=== PATIENT | male | born 1975 | race African-American/Black ===

== ENCOUNTER 2017-01-27 15:19 | Observation (INO) | payer SELFPAY ==
[~2017-01-27] VITALS: Ht 172.7 cm; Wt 109.1 kg
[~2017-01-27 15:19] MED LIST: LISI-338
--- NOTE | 2017-01-27 15:51 | EKG ---
[facility] [address] [place] [address] Test Date: 2017-01-27 Test Time: 15:30:04 Pat Name: ANDREZ ANTONIO Department: Room: Gender: M Technical Product Manager: : 1975 Requested By: JANET LINK Order Number: [id number] Reading MD: Roxane Estrella Measurements Intervals Butler Rate: 89 P: 48 RI: 160 QRS: -1 QRSD: 102 T: 155 QT: 368 QTc: 449 Interpretive Statements SINUS RHYTHM LEFT ATRIAL ABNORMALITY LEFTWARD AXIS INCOMPLETE RIGHT BUNDLE BRANCH BLOCK LVH WITH REPOLARIZATION ABNORMALITY ALSO CONSIDER MYOCARDIAL ISCHEMIA Electronically Signed On 01-30-2017 15:27:12 CDT by Roxane Estrella
[2017-01-27 15:53] LABS: BASO # 0.1 x10^3/uL (0.0-0.2); BASO % 1 % (0-3); EOS % 1 % (0-3); HEMATOCRIT 47.5 % (39.0-53.0); HEMOGLOBIN 16.5 g/dL (13.0-17.5); LYMPH # 2.4 x10^3/uL (1.0-4.8); LYMPH % 28 % (24-48); MEAN CORPUSCULAR HEMOGLOBIN 29 pg (25-35); MEAN CORPUSCULAR HGB CONC 35 g/dL (31-37); MEAN CORPUSCULAR VOLUME 85 fL (79-100); MONO % 7 % (0-9); NEUT % 64 % (31-73); PLATELET COUNT 257 x10^3/uL (140-400); RED BLOOD COUNT 5.61 x10^6/uL (4.30-5.70); RED CELL DISTRIBUTION WIDTH 14.1 % (11.5-14.5); WHITE BLOOD COUNT 8.5 x10^3/uL (4.0-11.0)
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
--- NOTE | 2017-01-27 15:58 | RAD ---
Portable chest, 01/27/2017: History: Shortness of breath and chest pain Comparison is made to a study from 12/13/2013. The heart size and pulmonary vascularity are normal. There are granulomatous calcifications at the AP window level. No acute infiltrates are seen. There is no evidence of pleural fluid. IMPRESSION: No acute cardiopulmonary abnormality is detected.
[2017-01-27] MEDS ORDERED: cloNIDine HCL 0.1 MG TABLET PO ONE (16:00)
[2017-01-27 16:05] LABS: CALCIUM 9.3 mg/dL (8.5-10.1); CREATININE 1.2 mg/dL (0.7-1.3); GFR 81.6; POTASSIUM 4.2 mmol/L (3.5-5.1)
[2017-01-27 16:11] LABS: ALBUMIN 3.4 g/dL (3.4-5.0); ALBUMIN/GLOBULIN RATIO 0.9 (1.0-1.7); TOTAL BILIRUBIN 0.7 mg/dL (0.2-1.0); TOTAL PROTEIN 7.4 g/dL (6.4-8.2)
[2017-01-27] MEDS ORDERED: LISINOPRIL 10 MG TABLET PO ONE (17:15)
[2017-01-27] MEDS ORDERED: ASPIRIN CHEWABLE 81 MG TABLET. PO ONE (18:00)
[2017-01-27 19:00] VITALS: BP 116/62
[2017-01-27] MEDS ORDERED: ACETAMINOPHEN 325 MG TABLET. PO PRN (20:00)
[2017-01-27] MEDS ORDERED: HYDROcodone/APAP 5/325MG 1 TAB TABLET PO PRN (20:00)
[2017-01-27] MEDS ORDERED: ALBUTEROL SULFATE 2.5 MG/3 ML NEBU. NEB PRN (20:00)
[2017-01-27] MEDS ORDERED: ONDANSETRON PF 4 MG/2 ML VIAL. IV PRN (20:00)
--- NOTE | 2017-01-27 20:03 | PDOC1 ---
History and Physical Identification/Chief Complaint Chief Complaint Date of exam is 01/27/2017 Chief complaint is chest pain History of present illness: A 41-year-old -[place] male patient with a prior history of hypertension and type 2 diabetes mellitus present to the ER with complaints of chest pain for nearly 2 days, described it as a constant achy located in the center of the chest, patient ran out of his medications for a few days, not able to take his blood pressure medication due to financial problems. He does admit that he took cocaine 5 days ago with marijuana. He denies any aggravating or relieving factors patient says because of his blood pressure is not able to work his blood pressure medications are causing him dizziness. He denies any syncope or leg swellings. Denies any radiation of the pain denies any nausea vomiting or sweating. Past medical history hypertension type 2 diabetes mellitus Past surgical history: Tracheostomy Personal history: Heavy alcohol, cocaine and THC occasional. No smoking Family history: No sudden cardiac deaths? Questionable hypertension Allergies NKDA Problems: Current Problem List Problem List Problems Medical Problems: (1) Accelerated hypertension Status: Acute (2) Chest pain Status: Acute Current Medications Current Medications Current Medications Medications (Trade) Dose Ordered Sig/Derian Start Time Stop Time Status Last Admin Dose Admin Aspirin (Children'S Aspirin) 324 mg 1X ONCE 01/27/17 18:00 01/27/17 18:01 DC 01/27/17 18:50 324 MG Clonidine HCl (Catapres) 0.3 mg 1X ONCE 01/27/17 16:00 01/27/17 16:01 DC 01/27/17 16:20 0.3 MG Lisinopril (Prinivil) 20 mg 1X ONCE 01/27/17 17:15 01/27/17 17:16 DC 01/27/17 17:25 20 MG Allergies Allergies Allergies Coded Allergies Type Severity Reaction Last Updated Verified No Known Drug Allergies 12/13/13 No ROS Review of System CONSTITUTIONAL: No fever or chills EYES: No recent changes SKIN: No rash or itching CARDIOVASCULAR: No chest pain, syncope, palpitations, or edema RESPIRATORY: No SOB or cough GASTROINTESTINAL: No nausea, vomiting or abdominal pain NEUROLOGICAL: No headaches or weakness ENDOCRINE: No cold or heat intolerance GENITOURINARY: No urgency or frequency of urination MUSCULOSKELETAL: No back pain or joint pain LYMPHATICS: No enlarged lymph nodes PSYCHIATRIC: No anxiety or depression Physical Exam Physical Exam GEN.: No apparent distress. Alert and oriented. HEENT: Head is normocephalic, atraumatic NECK: Supple. LUNGS: Clear to auscultation. HEART: RRR, S1, S2 present. Peripheral pulses intact ABDOMEN: Soft, nontender. Positive bowel sounds. EXTREMITIES: Without any cyanosis. NEUROLOGIC: Normal speech, normal tone PSYCHIATRIC: Normal affect, normal mood. SKIN: No ulcerations Vitals Vitals Vital Signs Date Time Temp Pulse Resp B/P (MAP) Pulse Ox O2 Delivery O2 Flow Rate FiO2 01/27/17 18:30 74 16 125/68 (87) 100 01/27/17 15:30 98.6 Room Air 98.6 Labs Labs Laboratory Tests Test 01/27/17 15:26 01/27/17 15:45 Glucose (Fingerstick) 196 mg/dL (70-99) White Blood Count 8.5 x10^3/uL (4.0-11.0) Red Blood Count 5.61 x10^6/uL (4.30-5.70) Hemoglobin 16.5 g/dL (13.0-17.5) Hematocrit 47.5 % (39.0-53.0) Mean Corpuscular Volume 85 fL (79-100) Mean Corpuscular Hemoglobin 29 pg (25-35) Mean Corpuscular Hemoglobin Concent 35 g/dL (31-37) Red Cell Distribution Width 14.1 % (11.5-14.5) Platelet Count 257 x10^3/uL (140-400) Neutrophils (%) (Auto) 64 % (31-73) Lymphocytes (%) (Auto) 28 % (24-48) Monocytes (%) (Auto) 7 % (0-9) Eosinophils (%) (Auto) 1 % (0-3) Basophils (%) (Auto) 1 % (0-3) Neutrophils # (Auto) 5.4 x10^3uL (1.8-7.7) Lymphocytes # (Auto) 2.4 x10^3/uL (1.0-4.8) Monocytes # (Auto) 0.6 x10^3/uL (0.0-1.1) Eosinophils # (Auto) 0.1 x10^3/uL (0.0-0.7) Basophils # (Auto) 0.1 x10^3/uL (0.0-0.2) Sodium Level 137 mmol/L (136-145) Potassium Level 4.2 mmol/L (3.5-5.1) Chloride Level 102 mmol/L (98-107) Carbon Dioxide Level 27 mmol/L (21-32) Anion Gap 8 (6-14) Blood Urea Nitrogen 16 mg/dL (8-26) Creatinine 1.2 mg/dL (0.7-1.3) Estimated GFR (Cockcroft-Gault) 81.6 BUN/Creatinine Ratio 13 (6-20) Glucose Level 195 mg/dL (70-99) Calcium Level 9.3 mg/dL (8.5-10.1) Total Bilirubin 0.7 mg/dL (0.2-1.0) Aspartate Amino Transf (AST/SGOT) 21 U/L (15-37) Alanine Aminotransferase (ALT/SGPT) 36 U/L (16-63) Alkaline Phosphatase 84 U/L (46-116) Troponin I Quantitative 0.032 ng/mL (0.000-0.055) Total Protein 7.4 g/dL (6.4-8.2) Albumin 3.4 g/dL (3.4-5.0) Albumin/Globulin Ratio 0.9 (1.0-1.7) Ethyl Alcohol Level < 10 mg/dL (0-10) Laboratory Tests Test 01/27/17 15:26 01/27/17 15:45 Glucose (Fingerstick) 196 mg/dL (70-99) White Blood Count 8.5 x10^3/uL (4.0-11.0) Red Blood Count 5.61 x10^6/uL (4.30-5.70) Hemoglobin 16.5 g/dL (13.0-17.5) Hematocrit 47.5 % (39.0-53.0) Mean Corpuscular Volume 85 fL (79-100) Mean Corpuscular Hemoglobin 29 pg (25-35) Mean Corpuscular Hemoglobin Concent 35 g/dL (31-37) Red Cell Distribution Width 14.1 % (11.5-14.5) Platelet Count 257 x10^3/uL (140-400) Neutrophils (%) (Auto) 64 % (31-73) Lymphocytes (%) (Auto) 28 % (24-48) Monocytes (%) (Auto) 7 % (0-9) Eosinophils (%) (Auto) 1 % (0-3) Basophils (%) (Auto) 1 % (0-3) Neutrophils # (Auto) 5.4 x10^3uL (1.8-7.7) Lymphocytes # (Auto) 2.4 x10^3/uL (1.0-4.8) Monocytes # (Auto) 0.6 x10^3/uL (0.0-1.1) Eosinophils # (Auto) 0.1 x10^3/uL (0.0-0.7) Basophils # (Auto) 0.1 x10^3/uL (0.0-0.2) Sodium Level 137 mmol/L (136-145) Potassium Level 4.2 mmol/L (3.5-5.1) Chloride Level 102 mmol/L (98-107) Carbon Dioxide Level 27 mmol/L (21-32) Anion Gap 8 (6-14) Blood Urea Nitrogen 16 mg/dL (8-26) Creatinine 1.2 mg/dL (0.7-1.3) Estimated GFR (Cockcroft-Gault) 81.6 BUN/Creatinine Ratio 13 (6-20) Glucose Level 195 mg/dL (70-99) Calcium Level 9.3 mg/dL (8.5-10.1) Total Bilirubin 0.7 mg/dL (0.2-1.0) Aspartate Amino Transf (AST/SGOT) 21 U/L (15-37) Alanine Aminotransferase (ALT/SGPT) 36 U/L (16-63) Alkaline Phosphatase 84 U/L (46-116) Troponin I Quantitative 0.032 ng/mL (0.000-0.055) Total Protein 7.4 g/dL (6.4-8.2) Albumin 3.4 g/dL (3.4-5.0) Albumin/Globulin Ratio 0.9 (1.0-1.7) Ethyl Alcohol Level < 10 mg/dL (0-10) VTE Prophylaxis Ordered VTE Prophylaxis Devices: Yes VTE Pharmacological Prophylaxi: No Assessment/Plan Assessment/Plan Chest pain unclear etiology Uncontrolled hypertension Type 2 diabetes mellitus Heavy alcohol use Cocaine and THC Plan For chest pain I will get 2 more sets of troponins, EKG personally reviewed showed LVH changes with the strain pattern, consult cardiology for further recommendations, echocardiogram ordered I will start his own medications along with the IV hydralazine for blood pressure control His been started and I'll call withdrawal prevention with multivitamin replacements and up as needed Ativan package worker consultation Sliding scale insulin for hyperglycemia Pain control with hydrocodone/Ativan Keep patient nothing by mouth from midnight KHANG VALENTE MD Jan 27, 2017 20:03
[2017-01-27] MEDS ORDERED: LISI-334 PO (21:21)
[2017-01-27] MEDS ORDERED: METF-620 PO (21:23)
[2017-01-27] MEDS: MULTIVIT INFUSN,ADULT 4,VIT K 10 ML, THIAMINE 100 MG, FOLIC ACID 1 MG in IV NORMAL SALI... IV SCH (21:25)
[2017-01-27] MEDS: LORazepam 1 MG TABLET PO SCH (21:25)
[2017-01-27 23:00] VITALS: BP 113/55
[2017-01-28] VITALS (7 sets, daily range): BP systolic 132–167; BP diastolic 90–113
--- NOTE | 2017-01-28 00:33 | ACF ---
Admission Forms Criteria CARDIOLOGY GRG Clinical Indications for Admission to Inpatient Care ( Place 'X' for any and all applicable criteria): Hospital admission is needed for appropriate care of the patient because of ANY ONE of the following (1): [ ] I. Hemodynamic instability as indicated by ALL of the following (1)(2)(3) (4)(5) [ ]a) Vital signs or other findings not as expected for chronic patient condition or baseline [ ]b) Instability indicated by ANY ONE of the following: [ ]i) Hypotension [ ]ii) Symptomatic Tachycardia unresponsive to treatment ( e.g., analgesia, fluids, sedation as indicated) [ ]iii) Inadequate perfusion indicated by ANY ONE of the following: [ ] 1) Lactic acidosis (> 2 mmol/L) [ ] 2) New abnormal capillary refill (> 3 seconds) [ ] 3) Reduced urine output [ ] 4) New altered mental status [ ]iv) Orthostatic vital sign changes unresponsive to treatment (e.g., fluids) [ ]v) IV inotropic or vasopressor medication required to maintain adequate blood pressure or perfusion [ ] II. Severe heart failure as indicated by ANY ONE of the following(17)(18) [ ]a) Respiratory distress [ ]b) Hypotension [ ]c) Anasarca (refractory to outpatient therapy) [ ]d) Cardiac arrhythmias of immediate concern [ ]e) Myocardial ischemia [ ] III. Cardiac arrhythmias or findings of immediate concern indicated by ANY ONE of the following (19)(20): [ ] a) Heart rhythms that are inherently dangerous or unstable indicated by ANY ONE of the following (21)(22)(23): [ ] i) Resuscitated ventricular fibrillation or cardiac arrest [ ] ii) Ventricular escape rhythm [ ] iii) Sustained ventricular tachycardia (30 seconds or more of ventricular rhythm at greater than 100 beats per minute) [ ] iv) Nonsustained ventricular tachycardia and ANY ONE of the following: [ ] 1) Suspected cardiac ischemia as cause or consequence of ventricular tachycardia [ ] 2) In setting of acute myocarditis [ ] b) Unstable cardiac conduction defects indicated by ANY ONE of the following(23)(24)(25) [ ] i) Type II second-degree atrioventricular block [ ]ii) Third-degree atrioventricular block [ ]iii) New-onset left bundle branch block with suspected myocardial ischemia [ ]c) Any heart rhythm and ANY ONE of the following (21)(22)(26)(27) (28) [ ] i) Continuous long-term ECG monitoring needed (e.g., initiation of drug requiring monitoring for more than 24 hours) [ ] ii) Patient has automatic implanted cardioverter defibrillator that is repeatedly firing, malfunctioning, or in need of immediate adjustment of settings beyond the scope of ambulatory or observation care [ ]d) Heart rhythms of concern due to ANY ONE of the following: [ ] i) Hypotension [ ] ii) Respiratory distress [ ] iii) Association with other significant symptoms (e.g., bradycardia with syncope or ongoing dizziness, supraventricular tachycardia with chest pain (14)(15)(17) [ ] IV. Monitoring for cardiac contusion beyond the scope of observation care needed [A](30)(31)(32) [ ] V. Surgical or device complication (e.g., valve replacement complication , pacemaker dysfunction) (35)(41)(44)(45)(46) [ ] . Inpatient palliative care needed. [B](49) Also use Inpatient Palliative Care Criteria [ ] VII. Nonbacterial thrombotic (marantic) endocarditis (36)(43)(47)(48) [X] VIII. Cardiology condition, symptom, or finding for which emergency and observation care has failed or are not considered appropriate. [ ] IX. Acute valvular disease requiring inpatient as indicated by ANY ONE of the following (41) [ ]a) Acute valvular regurgitation (42) [ ]b) Noninfectious valvulitis (43) [ ]c) Obstructive valve thrombosis [ ]d) Paravalvular leak [ ]e) Other significant valvular disorder remaining after emergency or observation level of care (as appropriate) [ ]X. Pericardial disease requiring inpatient treatment as indicated by ANY ONE of the following (33)(34)(35)(36)(37) [ ]a) Suspected tamponade (38)(39)(40) [ ]b) Hemopericardium [ ]c) Other significant pericardial disorder remaining after emergency or observation level of care (as appropriate) [ ] XI. Cardiac ischemia beyond scope of emergency and observation care. [ ] XII. Hypertension requiring inpatient treatment as indicated by ANY ONE of the following (6)(7)(8) [ ]a) SBP greater than 220 mm Hg or DBP greater than 120 mmHg despite treatment [ ]b) SBP greater than 140 mm Hg or DBP greater than 100 mm Hg with evidence of acute end organ damage as indicated by ANY ONE of the following [ ] i) Encephalopathy [ ] ii) Acute renal failure as indicated by new onset of ANY ONE of the following (9)(10)(11)(12)(13) [ ]1) 3-fold rise in serum creatinine from baseline [ ]2) Serum creatinine greater than 4 mg/dL ( 354 micromoles/L) with acute rise greater than 0.5 mg/dL (44.2 micromoles/L) [ ]3) Reduction of more than 75% in estimated glomerular filtration rate from baseline [ ]4) Estimated glomerular filtration rate less than 35 mL/min/1.73m2 (0.59 mL/sec/1.73m2) in child up to 18 years of age [ ]5) Cessation of urine output indicated by ALL of the following [ ]A. Adequate volume status [ ]B. Inadequate urine output as indicated by ANY ONE of the following [ ]a. Urine output less than 0.3 mL/kg/hr for 24 hours [ ]b. Anuria (urine output less than 0.1 mL/kg/hr) for 12 hours [ ] iii) Aortic dissection [ ] iv) Myocardial Ischemia [ ] v) Left ventricular heart failure [ ]vi) Retinal Hemorrhage [ ]vii) Other significant finding [ ]c) Hypertension in child requiring inpatient treatment as indicated by ALL of the following(14)(15)(16) [ ] i) Outpatient treatment not effective, not available, or not appropriate [ ]ii) SBP or DBP greater than 95th percentile for age [ ]iii) Evidence of acute end organ damage as indicated by ANY ONE of the following [ ]1) Altered mental status [ ]2) Acute renal failure as indicated by new onset of ANY ONE of the following(9)(10)(11)(12)(13) [ ]A. 3-fold rise in serum creatinine from baseline [ ]B. Serum creatinine greater than 4 mg/dL (354 micromoles/L) with acute rise greater than 0.5 mg/dL (44.2 micromoles/L) [ ]C. Reduction of more than 75% in estimated glomerular filtration rate from baseline [ ]D. Estimated glomerular filtration rate less than 35 mL/min/1.73m2 (0.59 mL/sec/1.73m2) in child up to 18 years of age [ ]E. Cessation of urine output indicated by ALL of the following [ ]a. Adequate volume status [ ]b. Inadequate urine output as indicated by ANY ONE of the following [ ]i) Urine output less than 0.3 mL/kg/hr for 24 hours [ ]ii) Anuria ( urine output less than 0.1 mL/kg/hr) for 12 hours [ ]3) Severe headache [ ]4) Visual disturbance [ ]5) Retinal hemorrhage [ ]6) Other significant finding [ ]XIII. Complications of transplanted heart indicated by ANY ONE of the following(61): [ ]a) Acute graft rejection requiring inpatient management (eg, intravenous immunosuppression)(62)(63) [ ]b) Acute graft heart failure indicated by ANY ONE of the following(64): [ ]i) Hemodynamic instability [ ]ii) Cardiac arrhythmias of immediate concern [ ]iii) Pulmonary edema that is very severe (eg, mechanical ventilation needed, imminent or likely, need for 100% oxygen to keep oxygen saturation above 90%) [ ]iv) Pulmonary edema that is persistent as indicated by ALL of the following: [ ]1) New need for oxygen therapy to keep oxygen saturation above 90% (or increased FiO2 need from baseline) [ ]2) Has not improved sufficiently with emergency department or observation care IV diuretics or other heart failure treatments[E] [ ]v) Altered mental status that is severe or persistent [ ]vi) Increased creatinine (new on laboratory test) with reduction of more than 50% in estimated glomerular filtration rate from baseline [ ]vii) Progressively (ongoing) rising creatinine (known from past laboratory test) with reduction of more than 25% in estimated glomerular filtration rate from baseline [ ]viii) Acute renal failure [ ]ix) Acute peripheral ischemia (eg, examination shows pulseless, cool, mottled, or cyanotic extremity) [ ]x) Pulmonary artery catheter monitoring needed [ ]xi) Other sign or symptom of heart failure requiring inpatient treatment (ie, too severe or not responsive to outpatient and observation care treatment) [ ]c) Infection requiring inpatient management (eg, Hemodynamic instability, need for intravenous antimicrobial treatment)(66)(67)(68)(69)(70) [ ]d) Cardiac allograft vasculopathy requiring inpatient management ( eg evidence of cardiac ischemia)(71) [ ]e) Other complication of transplanted heart (eg, stroke, severe pulmonary hypertension, severe valvular dysfunction) requiring inpatient management(72) The original [facility] content created by [facility] has been revised. The portions of the content which have been revised are identified through the use of italic text or in bold, and [facility] has neither reviewed nor approved the modified material. All other unmodified content is copyright [facility]. Please see references footnoted in the original [facility] edition 2016 Admission Criteria Met?: Yes SONYA BOGGS Jan 28, 2017 00:33
[2017-01-28] MEDS: LORazepam 1 MG TABLET PO SCH ×4 (02:51→21:26)
[2017-01-28 06:42] LABS: CALCIUM 8.9 mg/dL (8.5-10.1); CREATININE 1.2 mg/dL (0.7-1.3); GFR 81.6; POTASSIUM 4.3 mmol/L (3.5-5.1)
[2017-01-28 07:39] LABS: BASO % 0 % (0-3); EOS % 1 % (0-3); HEMATOCRIT 43.6 % (39.0-53.0); LYMPH # 2.8 x10^3/uL (1.0-4.8); LYMPH % 40 % (24-48); MEAN CORPUSCULAR HEMOGLOBIN 29 pg (25-35); MEAN CORPUSCULAR HGB CONC 35 g/dL (31-37); MEAN CORPUSCULAR VOLUME 85 fL (79-100); MONO % 6 % (0-9); NEUT % 52 % (31-73); PLATELET COUNT 229 x10^3/uL (140-400); RED BLOOD COUNT 5.15 x10^6/uL (4.30-5.70); WHITE BLOOD COUNT 6.9 x10^3/uL (4.0-11.0)
[2017-01-28] MEDS ORDERED: DEXTROSE 50% 25 GM / 50ML DISP.SYRIN. IV PRN (08:30)
[2017-01-28] MEDS: LISINOPRIL 20 MG TABLET PO SCH ×2 (09:00→15:57)
--- NOTE | 2017-01-28 09:55 | PDOC2 ---
CARDIAC CONSULT DATE OF CONSULT Date of Consult DATE: 01/28/17 TIME: 09:38 REASON FOR CONSULT Reason for Consult: Chest pain REFERRING PHYSICIAN Referring Physician: Elysia SOURCE Source: Chart review, Patient HISTORY OF PRESENT ILLNESS HISTORY OF PRESENT ILLNESS This is a 41 yo AA male admitted for complains of chest pain. Reports that he last use cocaine 5 days ago. ETOH and marijuana 2 days ago. He also smokes tobacco and he has not been taking his lisinopril routinely, out of statin, but takes metformin daily and this is because he explains he is homeless living with his sister and no money. He has been having mid sharp pain in the last 3 days intermittent with associated mild SOA, diaphoresis, VALENCIA. This does go to his right shoulder at times. No palpitations, nausea or vomiting. He does have daily heartburn but does not use any medications for it. Denies any prior CAD, VTE, falls, or any recent injury. PAST MEDICAL HISTORY Cardiovascular: HTN, Hyperlipidemia Pulmonary: No pertinent hx CENTRAL NERVOUS SYSTEM: Other (No pertinent history) GI: GERD Heme/Onc: No pertinent hx Hepatobiliary: No pertinent hx Psych: Addictions, Other (alcoholism) Musculoskeletal: Other (No pertinent history) Rheumatologic: No pertinent hx Infectious disease: No pertinent hx ENT: No pertinent hx Renal/: No pertinent hx Endocrine: Diabetes (2) Dermatology: No pertinent hx PAST SURGICAL HISTORY Past Surgical History: Other (right clavicle repair, right neck cyst removal) FAMILY HISTORY Family History: Coronary Artery Disease (mother) SOCIAL HISTORY Smoke: <1 pack per day (>25 yrs) ALCOHOL: heavy (6 pack beer almost daily) Drugs: Cocaine (weekly used last 5 days ago), Marijuana (last use 2 days ago) Lives: with Family (with sister) CURRENT MEDICATIONS CURRENT MEDICATIONS Current Medications Medications (Trade) Dose Ordered Sig/Derian Route PRN Reason Start Time Stop Time Status Last Admin Dose Admin Clonidine HCl (Catapres) 0.3 mg 1X ONCE PO 01/27/17 16:00 01/27/17 16:01 DC 01/27/17 16:20 Lisinopril (Prinivil) 20 mg 1X ONCE PO 01/27/17 17:15 01/27/17 17:16 DC 01/27/17 17:25 Aspirin (Children'S Aspirin) 324 mg 1X ONCE PO 01/27/17 18:00 01/27/17 18:01 DC 01/27/17 18:50 Albuterol Sulfate (Ventolin Neb Soln) 2.5 mg PRN Q4HRS PRN NEB SHORTNESS OF BREATH 01/27/17 20:00 01/27/17 21:11 Multivitamins 10 ml/Thiamine HCl 100 mg/Folic Acid 1 mg/Sodium Chloride 1,011.2 ml @ 100 mls/ hr QHS IV 01/27/17 21:00 01/27/17 21:25 Lorazepam (Ativan) 2 mg Q6H PO 01/27/17 20:00 01/29/17 02:01 01/28/17 02:51 ALLERGIES ALLERGIES: Coded Allergies: No Known Drug Allergies (Unverified , 12/13/13) ROS Review of System 14 point ROS evaluated with pertinent positives noted per HPI PHYSICAL EXAM General: Alert, Oriented X3, Cooperative, No acute distress HEENT: Atraumatic, Mucous membr. moist/pink Lungs: Clear to auscultation, Normal air movement Heart: Regular rate (SR), Normal S1, Normal S2, Other (2/6 systolic murmur to LLS border) Abdomen: Soft, No tenderness Extremities: No cyanosis, No edema Skin: No breakdown, No significant lesion Neuro: Normal speech, Sensation intact Psych/Mental Status: Mental status NL, Mood NL MUSCULOSKELETAL: Full range of motion without pain VITALS VITALS Vital Signs Date Time Temp Pulse Resp B/P (MAP) Pulse Ox O2 Delivery O2 Flow Rate FiO2 01/28/17 07:00 96.7 99 18 132/96 (108) 96 Room Air 96.7 LABS Lab: Laboratory Tests Test 01/27/17 15:26 01/27/17 15:45 01/27/17 21:17 01/28/17 06:11 Glucose (Fingerstick) 196 mg/dL (70-99) 182 mg/dL (70-99) White Blood Count 8.5 x10^3/uL (4.0-11.0) 6.9 x10^3/uL (4.0-11.0) Red Blood Count 5.61 x10^6/uL (4.30-5.70) 5.15 x10^6/uL (4.30-5.70) Hemoglobin 16.5 g/dL (13.0-17.5) 15.0 g/dL (13.0-17.5) Hematocrit 47.5 % (39.0-53.0) 43.6 % (39.0-53.0) Mean Corpuscular Volume 85 fL (79-100) 85 fL (79-100) Mean Corpuscular Hemoglobin 29 pg (25-35) 29 pg (25-35) Mean Corpuscular Hemoglobin Concent 35 g/dL (31-37) 35 g/dL (31-37) Red Cell Distribution Width 14.1 % (11.5-14.5) 14.0 % (11.5-14.5) Platelet Count 257 x10^3/uL (140-400) 229 x10^3/uL (140-400) Neutrophils (%) (Auto) 64 % (31-73) 52 % (31-73) Lymphocytes (%) (Auto) 28 % (24-48) 40 % (24-48) Monocytes (%) (Auto) 7 % (0-9) 6 % (0-9) Eosinophils (%) (Auto) 1 % (0-3) 1 % (0-3) Basophils (%) (Auto) 1 % (0-3) 0 % (0-3) Neutrophils # (Auto) 5.4 x10^3uL (1.8-7.7) 3.6 x10^3uL (1.8-7.7) Lymphocytes # (Auto) 2.4 x10^3/uL (1.0-4.8) 2.8 x10^3/uL (1.0-4.8) Monocytes # (Auto) 0.6 x10^3/uL (0.0-1.1) 0.4 x10^3/uL (0.0-1.1) Eosinophils # (Auto) 0.1 x10^3/uL (0.0-0.7) 0.1 x10^3/uL (0.0-0.7) Basophils # (Auto) 0.1 x10^3/uL (0.0-0.2) 0.0 x10^3/uL (0.0-0.2) Sodium Level 137 mmol/L (136-145) 139 mmol/L (136-145) Potassium Level 4.2 mmol/L (3.5-5.1) 4.3 mmol/L (3.5-5.1) Chloride Level 102 mmol/L (98-107) 102 mmol/L (98-107) Carbon Dioxide Level 27 mmol/L (21-32) 30 mmol/L (21-32) Anion Gap 8 (6-14) 7 (6-14) Blood Urea Nitrogen 16 mg/dL (8-26) 15 mg/dL (8-26) Creatinine 1.2 mg/dL (0.7-1.3) 1.2 mg/dL (0.7-1.3) Estimated GFR (Cockcroft-Gault) 81.6 81.6 BUN/Creatinine Ratio 13 (6-20) Glucose Level 195 mg/dL (70-99) 200 mg/dL (70-99) Calcium Level 9.3 mg/dL (8.5-10.1) 8.9 mg/dL (8.5-10.1) Total Bilirubin 0.7 mg/dL (0.2-1.0) Aspartate Amino Transf (AST/SGOT) 21 U/L (15-37) Alanine Aminotransferase (ALT/SGPT) 36 U/L (16-63) Alkaline Phosphatase 84 U/L (46-116) Troponin I Quantitative 0.032 ng/mL (0.000-0.055) 0.034 ng/mL (0.000-0.055) Total Protein 7.4 g/dL (6.4-8.2) Albumin 3.4 g/dL (3.4-5.0) Albumin/Globulin Ratio 0.9 (1.0-1.7) Ethyl Alcohol Level < 10 mg/dL (0-10) Test 01/28/17 07:54 Glucose (Fingerstick) 174 mg/dL (70-99) ASSESSMENT/PLAN ASSESSMENT/PLAN 1. Chest pain: likely GERD with possible vasopasm, Troponin series normal, EKG SR compatible with LVH. Doubt ACS. Currently CP free 2. Accelerated HTN: due to treatment noncompliance 3. DM2/HLP 4. Polysubstance abuse: cocaine, marijuana, ETOH 5. Tobaccoism 6. Obesity 7. Noncompliance Recommendations 1. Preliminary TTE with normal EF, LV systolic function, normal wall motion, but with severe LVH 2. Unable to do MPI due to cocaine use. Conflicting account, pt told me last cocaine 5 days ago, and told other satff yesterday. Will perform stress echo instead. 3. Tox screen, TSH, A1C, lipid panel 4. Discussed lifestyle modifications, abstinence from rec drugs, and treatment compliance. 5. Resume lisinopril, start protonix and ECASA 81 mg. Problems: MITESH MENDEZ APRN Jan 28, 2017 09:55
[2017-01-28 09:59] LABS: BARBITURATES NEG (NEG); BENZODIAZEPINES NEG (NEG); CANNABINOIDS NEG (NEG); COCAINE POS (NEG); METHADONE NEG (NEG); OPIATES NEG (NEG); PHENCYCLIDINE NEG (NEG)
[2017-01-28 10:00] LABS: CHOLESTEROL/HDL RATIO 4.1
[2017-01-28] MEDS ORDERED: NICOTINE 21MG PATCH. TD PRN (10:30)
[2017-01-28] MEDS ORDERED: chlordiazePOXIDE HCL 25 MG CAPSULE PO PRN (10:30)
--- NOTE | 2017-01-28 10:30 | PDOC ---
PROGRESS NOTES Chief Complaint Chief Complaint Atypical CP Uncontrolled hypertension Type 2 diabetes mellitus Heavy alcohol use Cocaine and THC History of Present Illness History of Present Illness Claims headache and CP Denied heavy etoh to me But as per chart and cardiology - signif intake ( i believe the latter) EKG and trops reassuring RAn out of meds SP Dw him free clinics - seem not interested HUngry, wants to eat PLAN: Echo ordered Possible MPI Add SSI CIWA Benzos prn Supportive meds Check UDS OBS Vitals Vitals Vital Signs Date Time Temp Pulse Resp B/P (MAP) Pulse Ox O2 Delivery O2 Flow Rate FiO2 01/28/17 09:00 99 132/96 01/28/17 08:00 Room Air 01/28/17 07:00 96.7 18 96 96.7 Physical Exam General: Alert, Oriented X3, Cooperative, No acute distress Heart: Regular rate (SR), Normal S1, Normal S2, Other (2/6 systolic murmur to LLS border) Abdomen: Soft, No tenderness Extremities: No cyanosis, No edema Skin: No breakdown, No significant lesion Labs LABS Laboratory Tests Test 01/27/17 15:26 01/27/17 15:45 01/27/17 21:17 01/28/17 06:11 Glucose (Fingerstick) 196 mg/dL (70-99) 182 mg/dL (70-99) White Blood Count 8.5 x10^3/uL (4.0-11.0) 6.9 x10^3/uL (4.0-11.0) Red Blood Count 5.61 x10^6/uL (4.30-5.70) 5.15 x10^6/uL (4.30-5.70) Hemoglobin 16.5 g/dL (13.0-17.5) 15.0 g/dL (13.0-17.5) Hematocrit 47.5 % (39.0-53.0) 43.6 % (39.0-53.0) Mean Corpuscular Volume 85 fL (79-100) 85 fL (79-100) Mean Corpuscular Hemoglobin 29 pg (25-35) 29 pg (25-35) Mean Corpuscular Hemoglobin Concent 35 g/dL (31-37) 35 g/dL (31-37) Red Cell Distribution Width 14.1 % (11.5-14.5) 14.0 % (11.5-14.5) Platelet Count 257 x10^3/uL (140-400) 229 x10^3/uL (140-400) Neutrophils (%) (Auto) 64 % (31-73) 52 % (31-73) Lymphocytes (%) (Auto) 28 % (24-48) 40 % (24-48) Monocytes (%) (Auto) 7 % (0-9) 6 % (0-9) Eosinophils (%) (Auto) 1 % (0-3) 1 % (0-3) Basophils (%) (Auto) 1 % (0-3) 0 % (0-3) Neutrophils # (Auto) 5.4 x10^3uL (1.8-7.7) 3.6 x10^3uL (1.8-7.7) Lymphocytes # (Auto) 2.4 x10^3/uL (1.0-4.8) 2.8 x10^3/uL (1.0-4.8) Monocytes # (Auto) 0.6 x10^3/uL (0.0-1.1) 0.4 x10^3/uL (0.0-1.1) Eosinophils # (Auto) 0.1 x10^3/uL (0.0-0.7) 0.1 x10^3/uL (0.0-0.7) Basophils # (Auto) 0.1 x10^3/uL (0.0-0.2) 0.0 x10^3/uL (0.0-0.2) Sodium Level 137 mmol/L (136-145) 139 mmol/L (136-145) Potassium Level 4.2 mmol/L (3.5-5.1) 4.3 mmol/L (3.5-5.1) Chloride Level 102 mmol/L (98-107) 102 mmol/L (98-107) Carbon Dioxide Level 27 mmol/L (21-32) 30 mmol/L (21-32) Anion Gap 8 (6-14) 7 (6-14) Blood Urea Nitrogen 16 mg/dL (8-26) 15 mg/dL (8-26) Creatinine 1.2 mg/dL (0.7-1.3) 1.2 mg/dL (0.7-1.3) Estimated GFR (Cockcroft-Gault) 81.6 81.6 BUN/Creatinine Ratio 13 (6-20) Glucose Level 195 mg/dL (70-99) 200 mg/dL (70-99) Calcium Level 9.3 mg/dL (8.5-10.1) 8.9 mg/dL (8.5-10.1) Total Bilirubin 0.7 mg/dL (0.2-1.0) Aspartate Amino Transf (AST/SGOT) 21 U/L (15-37) Alanine Aminotransferase (ALT/SGPT) 36 U/L (16-63) Alkaline Phosphatase 84 U/L (46-116) Troponin I Quantitative 0.032 ng/mL (0.000-0.055) 0.034 ng/mL (0.000-0.055) Total Protein 7.4 g/dL (6.4-8.2) Albumin 3.4 g/dL (3.4-5.0) Albumin/Globulin Ratio 0.9 (1.0-1.7) Ethyl Alcohol Level < 10 mg/dL (0-10) Triglycerides Level 198 mg/dL (0-150) Cholesterol Level 188 mg/dL (0-200) LDL Cholesterol, Calculated 102 mg/dL (0-100) VLDL Cholesterol, Calculated 40 mg/dL (0-40) Non-HDL Cholesterol Calculated 142 mg/dL (0-129) HDL Cholesterol 46 mg/dL (40-60) Cholesterol/HDL Ratio 4.1 Thyroid Stimulating Hormone (TSH) 5.655 uIU/mL (0.358-3.74) Test 01/28/17 07:54 01/28/17 09:43 Glucose (Fingerstick) 174 mg/dL (70-99) Urine Opiates Screen Neg (NEG) Urine Methadone Screen Neg (NEG) Urine Barbiturates Neg (NEG) Urine Phencyclidine Screen Neg (NEG) Urine Amphetamine/Methamphetamine Neg (NEG) Urine Benzodiazepines Screen Neg (NEG) Urine Cocaine Screen Pos (NEG) Urine Cannabinoids Screen Neg (NEG) Urine Ethyl Alcohol Neg (NEG) Review of Systems Review of Systems headache, CP, all else is neg Assessment and Plan Assessmemt and Plan Problems Medical Problems: (1) Accelerated hypertension Status: Acute (2) Chest pain Status: Acute Problems: Comment Review of Relevant I have reviewed the following items aleksandar (where applicable) has been applied. Labs Laboratory Tests Test 01/27/17 15:26 01/27/17 15:45 01/27/17 21:17 01/28/17 06:11 Glucose (Fingerstick) 196 mg/dL (70-99) 182 mg/dL (70-99) White Blood Count 8.5 x10^3/uL (4.0-11.0) 6.9 x10^3/uL (4.0-11.0) Red Blood Count 5.61 x10^6/uL (4.30-5.70) 5.15 x10^6/uL (4.30-5.70) Hemoglobin 16.5 g/dL (13.0-17.5) 15.0 g/dL (13.0-17.5) Hematocrit 47.5 % (39.0-53.0) 43.6 % (39.0-53.0) Mean Corpuscular Volume 85 fL (79-100) 85 fL (79-100) Mean Corpuscular Hemoglobin 29 pg (25-35) 29 pg (25-35) Mean Corpuscular Hemoglobin Concent 35 g/dL (31-37) 35 g/dL (31-37) Red Cell Distribution Width 14.1 % (11.5-14.5) 14.0 % (11.5-14.5) Platelet Count 257 x10^3/uL (140-400) 229 x10^3/uL (140-400) Neutrophils (%) (Auto) 64 % (31-73) 52 % (31-73) Lymphocytes (%) (Auto) 28 % (24-48) 40 % (24-48) Monocytes (%) (Auto) 7 % (0-9) 6 % (0-9) Eosinophils (%) (Auto) 1 % (0-3) 1 % (0-3) Basophils (%) (Auto) 1 % (0-3) 0 % (0-3) Neutrophils # (Auto) 5.4 x10^3uL (1.8-7.7) 3.6 x10^3uL (1.8-7.7) Lymphocytes # (Auto) 2.4 x10^3/uL (1.0-4.8) 2.8 x10^3/uL (1.0-4.8) Monocytes # (Auto) 0.6 x10^3/uL (0.0-1.1) 0.4 x10^3/uL (0.0-1.1) Eosinophils # (Auto) 0.1 x10^3/uL (0.0-0.7) 0.1 x10^3/uL (0.0-0.7) Basophils # (Auto) 0.1 x10^3/uL (0.0-0.2) 0.0 x10^3/uL (0.0-0.2) Sodium Level 137 mmol/L (136-145) 139 mmol/L (136-145) Potassium Level 4.2 mmol/L (3.5-5.1) 4.3 mmol/L (3.5-5.1) Chloride Level 102 mmol/L (98-107) 102 mmol/L (98-107) Carbon Dioxide Level 27 mmol/L (21-32) 30 mmol/L (21-32) Anion Gap 8 (6-14) 7 (6-14) Blood Urea Nitrogen 16 mg/dL (8-26) 15 mg/dL (8-26) Creatinine 1.2 mg/dL (0.7-1.3) 1.2 mg/dL (0.7-1.3) Estimated GFR (Cockcroft-Gault) 81.6 81.6 BUN/Creatinine Ratio 13 (6-20) Glucose Level 195 mg/dL (70-99) 200 mg/dL (70-99) Calcium Level 9.3 mg/dL (8.5-10.1) 8.9 mg/dL (8.5-10.1) Total Bilirubin 0.7 mg/dL (0.2-1.0) Aspartate Amino Transf (AST/SGOT) 21 U/L (15-37) Alanine Aminotransferase (ALT/SGPT) 36 U/L (16-63) Alkaline Phosphatase 84 U/L (46-116) Troponin I Quantitative 0.032 ng/mL (0.000-0.055) 0.034 ng/mL (0.000-0.055) Total Protein 7.4 g/dL (6.4-8.2) Albumin 3.4 g/dL (3.4-5.0) Albumin/Globulin Ratio 0.9 (1.0-1.7) Ethyl Alcohol Level < 10 mg/dL (0-10) Triglycerides Level 198 mg/dL (0-150) Cholesterol Level 188 mg/dL (0-200) LDL Cholesterol, Calculated 102 mg/dL (0-100) VLDL Cholesterol, Calculated 40 mg/dL (0-40) Non-HDL Cholesterol Calculated 142 mg/dL (0-129) HDL Cholesterol 46 mg/dL (40-60) Cholesterol/HDL Ratio 4.1 Thyroid Stimulating Hormone (TSH) 5.655 uIU/mL (0.358-3.74) Test 01/28/17 07:54 01/28/17 09:43 Glucose (Fingerstick) 174 mg/dL (70-99) Urine Opiates Screen Neg (NEG) Urine Methadone Screen Neg (NEG) Urine Barbiturates Neg (NEG) Urine Phencyclidine Screen Neg (NEG) Urine Amphetamine/Methamphetamine Neg (NEG) Urine Benzodiazepines Screen Neg (NEG) Urine Cocaine Screen Pos (NEG) Urine Cannabinoids Screen Neg (NEG) Urine Ethyl Alcohol Neg (NEG) Laboratory Tests Test 01/27/17 15:26 01/27/17 15:45 01/27/17 21:17 01/28/17 06:11 Glucose (Fingerstick) 196 mg/dL (70-99) 182 mg/dL (70-99) White Blood Count 8.5 x10^3/uL (4.0-11.0) 6.9 x10^3/uL (4.0-11.0) Red Blood Count 5.61 x10^6/uL (4.30-5.70) 5.15 x10^6/uL (4.30-5.70) Hemoglobin 16.5 g/dL (13.0-17.5) 15.0 g/dL (13.0-17.5) Hematocrit 47.5 % (39.0-53.0) 43.6 % (39.0-53.0) Mean Corpuscular Volume 85 fL (79-100) 85 fL (79-100) Mean Corpuscular Hemoglobin 29 pg (25-35) 29 pg (25-35) Mean Corpuscular Hemoglobin Concent 35 g/dL (31-37) 35 g/dL (31-37) Red Cell Distribution Width 14.1 % (11.5-14.5) 14.0 % (11.5-14.5) Platelet Count 257 x10^3/uL (140-400) 229 x10^3/uL (140-400) Neutrophils (%) (Auto) 64 % (31-73) 52 % (31-73) Lymphocytes (%) (Auto) 28 % (24-48) 40 % (24-48) Monocytes (%) (Auto) 7 % (0-9) 6 % (0-9) Eosinophils (%) (Auto) 1 % (0-3) 1 % (0-3) Basophils (%) (Auto) 1 % (0-3) 0 % (0-3) Neutrophils # (Auto) 5.4 x10^3uL (1.8-7.7) 3.6 x10^3uL (1.8-7.7) Lymphocytes # (Auto) 2.4 x10^3/uL (1.0-4.8) 2.8 x10^3/uL (1.0-4.8) Monocytes # (Auto) 0.6 x10^3/uL (0.0-1.1) 0.4 x10^3/uL (0.0-1.1) Eosinophils # (Auto) 0.1 x10^3/uL (0.0-0.7) 0.1 x10^3/uL (0.0-0.7) Basophils # (Auto) 0.1 x10^3/uL (0.0-0.2) 0.0 x10^3/uL (0.0-0.2) Sodium Level 137 mmol/L (136-145) 139 mmol/L (136-145) Potassium Level 4.2 mmol/L (3.5-5.1) 4.3 mmol/L (3.5-5.1) Chloride Level 102 mmol/L (98-107) 102 mmol/L (98-107) Carbon Dioxide Level 27 mmol/L (21-32) 30 mmol/L (21-32) Anion Gap 8 (6-14) 7 (6-14) Blood Urea Nitrogen 16 mg/dL (8-26) 15 mg/dL (8-26) Creatinine 1.2 mg/dL (0.7-1.3) 1.2 mg/dL (0.7-1.3) Estimated GFR (Cockcroft-Gault) 81.6 81.6 BUN/Creatinine Ratio 13 (6-20) Glucose Level 195 mg/dL (70-99) 200 mg/dL (70-99) Calcium Level 9.3 mg/dL (8.5-10.1) 8.9 mg/dL (8.5-10.1) Total Bilirubin 0.7 mg/dL (0.2-1.0) Aspartate Amino Transf (AST/SGOT) 21 U/L (15-37) Alanine Aminotransferase (ALT/SGPT) 36 U/L (16-63) Alkaline Phosphatase 84 U/L (46-116) Troponin I Quantitative 0.032 ng/mL (0.000-0.055) 0.034 ng/mL (0.000-0.055) Total Protein 7.4 g/dL (6.4-8.2) Albumin 3.4 g/dL (3.4-5.0) Albumin/Globulin Ratio 0.9 (1.0-1.7) Ethyl Alcohol Level < 10 mg/dL (0-10) Triglycerides Level 198 mg/dL (0-150) Cholesterol Level 188 mg/dL (0-200) LDL Cholesterol, Calculated 102 mg/dL (0-100) VLDL Cholesterol, Calculated 40 mg/dL (0-40) Non-HDL Cholesterol Calculated 142 mg/dL (0-129) HDL Cholesterol 46 mg/dL (40-60) Cholesterol/HDL Ratio 4.1 Thyroid Stimulating Hormone (TSH) 5.655 uIU/mL (0.358-3.74) Test 01/28/17 07:54 01/28/17 09:43 Glucose (Fingerstick) 174 mg/dL (70-99) Urine Opiates Screen Neg (NEG) Urine Methadone Screen Neg (NEG) Urine Barbiturates Neg (NEG) Urine Phencyclidine Screen Neg (NEG) Urine Amphetamine/Methamphetamine Neg (NEG) Urine Benzodiazepines Screen Neg (NEG) Urine Cocaine Screen Pos (NEG) Urine Cannabinoids Screen Neg (NEG) Urine Ethyl Alcohol Neg (NEG) Medications Current Medications Clonidine HCl (Catapres) 0.3 mg 1X ONCE PO Last administered on 01/27/17 16: 20; Start 01/27/17 at 16:00; Stop 01/27/17 at 16:01; Status DC Lisinopril (Prinivil) 20 mg 1X ONCE PO Last administered on 01/27/17 17:25; Start 01/27/17 at 17:15; Stop 01/27/17 at 17:16; Status DC Aspirin (Children'S Aspirin) 324 mg 1X ONCE PO Last administered on 01/27/17 18:50; Start 01/27/17 at 18:00; Stop 01/27/17 at 18:01; Status DC Hydralazine HCl (Apresoline) 10 mg PRN Q4HRS PRN IVP for SBP > 160; Start 01/27 at 20:00 Acetaminophen (Tylenol) 325 mg PRN Q6HRS PRN PO MILD PAIN / TEMP; Start at 20:00 Acetaminophen/ Hydrocodone Bitart (Lortab 5/325) 1 tab PRN Q6HRS PRN PO MODERATE TO SEVERE PAIN; Start 01/27/17 at 20:00 Ondansetron HCl (Zofran) 4 mg PRN Q8HRS PRN IV NAUSEA/VOMITING; Start 01/27/17 at 20:00 Albuterol Sulfate (Ventolin Neb Soln) 2.5 mg PRN Q4HRS PRN NEB SHORTNESS OF BREATH Last administered on 01/27/17 21:11; Start 01/27/17 at 20:00 Multivitamins 10 ml/Thiamine HCl 100 mg/Folic Acid 1 mg/Sodium Chloride 1,011.2 ml @ 100 mls/ hr QHS IV Last administered on 01/27/17 21:25; Start 01/27/17 at 21:00 Lorazepam (Ativan) 2 mg Q6H PO Last administered on 01/28/17 02:51; Start at 20:00; Stop 01/29/17 at 02:01 Lisinopril (Prinivil) 20 mg DAILY PO ; Start 01/28/17 at 09:00 Metformin HCl (Glucophage) 1,000 mg BIDWMEALS PO ; Start 01/28/17 at 08:00 Insulin Aspart (NovoLOG) 0-9 UNITS TIDWMEALS SQ ; Start 01/28/17 at 12:00 Dextrose (Dextrose 50%-Water Syringe) 12.5 gm PRN Q15MIN PRN IV SEE COMMENTS; Start 01/28/17 at 08:30 Aspirin (Ecotrin) 81 mg DAILYWBKFT PO ; Start 01/28/17 at 11:00 Lisinopril (Prinivil) 10 mg DAILY PO ; Start 01/28/17 at 11:00; Stop 01/28/17 at 11:00; Status DC Pantoprazole Sodium (Protonix) 40 mg DAILYAC PO ; Start 01/28/17 at 11:00 Active Scripts Active Reported Metformin Hcl 1,000 Mg Tablet 1,000 Mg PO BIDWMEALS Lisinopril 20 Mg Tablet 20 Mg PO DAILY Vitals/I & O Vital Sign - Last 24 Hours 01/27/17 01/27/17 01/27/17 01/27/17 15:30 15:30 16:00 16:20 Temp 98.6 98.6 Pulse 92 93 86 86 Resp 12 16 17 B/P (MAP) 188/117 (140) 188/117 (140) 192/115 (140) 192/115 Pulse Ox 97 98 98 O2 Delivery Room Air Room Air 01/27/17 01/27/17 01/27/17 01/27/17 16:30 17:00 17:25 17:30 Pulse 78 72 76 74 Resp 17 19 10 B/P (MAP) 199/103 (135) 155/95 (115) 155/95 126/74 (91) Pulse Ox 98 97 99 01/27/17 01/27/17 01/27/17 01/27/17 18:00 18:30 19:00 20:59 Temp 98.1 98.1 Pulse 72 74 75 Resp 8 16 18 B/P (MAP) 124/79 (94) 125/68 (87) 116/62 (80) Pulse Ox 99 100 98 O2 Delivery Room Air Room Air 01/27/17 01/27/17 01/28/17 01/28/17 21:12 23:00 03:00 07:00 Temp 99.1 97.7 96.7 99.1 97.7 96.7 Pulse 86 82 99 Resp 18 18 18 B/P (MAP) 113/55 (74) 167/95 (119) 132/96 (108) Pulse Ox 99 97 96 O2 Delivery Room Air Room Air Room Air Room Air 01/28/17 01/28/17 08:00 09:00 Pulse 99 B/P (MAP) 132/96 O2 Delivery Room Air Intake and Output 01/27/17 01/27/17 01/28/17 15:00 23:00 07:00 Output Total 525 ml Balance -525 ml AVA RAO MD Jan 28, 2017 10:30
[2017-01-28] MEDS ORDERED: LISINOPRIL 10 MG TABLET PO SCH (11:00)
[2017-01-28] MEDS: ASPIRIN ENTERIC COATED 81 MG TABLET.DR. PO SCH (11:25)
[2017-01-28] MEDS: PANTOPRAZOLE 40 MG TABLET.DR. PO SCH (11:25)
[2017-01-28] MEDS: INSULIN ASPART 300 UNITS/3 ML INSULN.PEN SQ SCH ×2 (11:31→17:18)
[2017-01-28] MEDS: hydrALAZINE 20 MG/ML VIAL. IVP PRN (15:24)
[2017-01-28] MEDS ORDERED: cloNIDine HCL 0.1 MG TABLET PO PRN (16:45)
--- NOTE | 2017-01-28 17:51 | CARD ---
APPROVED REPORT EXAM: Two-dimensional and M-mode echocardiogram with Doppler and color Doppler. Other Information Quality : Average Rhythm : NSR INDICATION Hypertension/HCVD Chest Pain 2D DIMENSIONS RVDd2.8 (2.9-3.5cm)Left Atrium(2D)3.3 (1.6-4.0cm) IVSd2.1 (0.7-1.1cm)Aortic Root(2D)2.9 (2.0-3.7cm) LVDd4.5 (3.9-5.9cm)LVOT Diameter2.3 (1.8-2.4cm) PWd2.1 (0.7-1.1cm)LVDs3.0 (2.5-4.0cm) FS (%) 34.7 %SV60.4 ml LVEF(%)64.0 (>50%) Aortic Valve AoV Peak Deonte.97.4cm/sAoV VTI16.6cm AO Peak GR.3.8mmHgLVOT Peak Deonte.68.1cm/s LVOT VTI 14.17cmAO Mean GR.2mmHg ANGE (VMAX)2.71rt2OQT (VTI)3.56cm2 Mitral Valve MV E Tcwkists26.8cm/sMV DECEL EVUN774xp MV A Dbdsjsxz67.5cm/sMV E Mean Gr.1mmHg MV QXR22joW/A Ratio0.8 MV A Jylbqgrd662nwFXZ (PHT)2.73cm2 TDI E/Lateral E'10.5E/Medial E'14.7 Pulmonary Valve PV Peak Sxujsfln09.9cm/sPV Peak Grad.3mmHg RVOT VTI18.3cm Tricuspid Valve TR P. Zbeazhoj259sn/sRAP MLIIBPBI2hoCx TR Peak Gr.10heEuEXUR93yhWh Pulmonary Vein S1 Dzqnkaov14.8cm/sD2 Suocyylx14.8cm/s LEFT VENTRICLE The left ventricle is normal size. There is mild concentric left ventricular hypertrophy. Left ventri rebel systolic function is normal. The Ejection Fraction is 60-65%. There is normal LV segmental wall m otion. Tissue Doppler imaging reveals mild left ventricular diastolic dysfunction. Transmitral Dopple r flow pattern is Grade I-abnormal relaxation pattern. There is no ventricular septal defect visualiz ed. RIGHT VENTRICLE The right ventricle is normal size. The right ventricular systolic function is normal. ATRIA The left atrium size is normal. The right atrium size is normal. The interatrial septum is intact wit h no evidence for an atrial septal defect or patent foramen ovale as noted on 2-D or Doppler imaging. AORTIC VALVE The aortic valve is normal in structure and function. The aortic valve appears trileaflet. Doppler an d Color Flow revealed no significant aortic regurgitation. There is no significant aortic valvular st enosis. MITRAL VALVE The mitral valve is normal in structure and function. There is no mitral valve stenosis. Doppler and Color Flow revealed no mitral valve regurgitation noted. TRICUSPID VALVE The tricuspid valve is normal in structure and function. Doppler and Color Flow revealed trivial tric uspid regurgitation. The PA pressure was estimated at 14 mmHg. There is no tricuspid valve stenosis. PULMONIC VALVE The pulmonic valve is not well visualized. Doppler and Color Flow revealed no pulmonic valvular regur gitation. There is no pulmonic valvular stenosis. GREAT VESSELS The aortic root is normal in size. Normal pulmonary venous flow (Doppler). The IVC is normal in size and collapses >50% with inspiration. PERICARDIAL EFFUSION There is no evidence of significant pericardial effusion. Critical Notification Critical Value: No <Conclusion> The left ventricle is normal size. Left ventricle systolic function is normal. The Ejection Fraction is 60-65%. There is mild concentric left ventricular hypertrophy. There is no significant aortic valvular stenosis. Doppler and Color Flow revealed no significant aortic regurgitation. Doppler and Color Flow revealed no mitral valve regurgitation noted. Doppler and Color Flow revealed trivial tricuspid regurgitation. The PA pressure was estimated at 14 mmHg.
[2017-01-28] MEDS ORDERED: SIMVASTATIN 20 MG TABLET PO SCH (21:00)
[2017-01-28] MEDS: MULTIVIT INFUSN,ADULT 4,VIT K 10 ML, THIAMINE 100 MG, FOLIC ACID 1 MG in IV NORMAL SALI... IV SCH (21:28)
[2017-01-29 03:56] VITALS: BP 165/106
[2017-01-29 04:41] LABS: BASO % 0 % (0-3); EOS % 2 % (0-3); HEMATOCRIT 43.6 % (39.0-53.0); HEMOGLOBIN 14.8 g/dL (13.0-17.5); LYMPH # 2.7 x10^3/uL (1.0-4.8); LYMPH % 40 % (24-48); MEAN CORPUSCULAR HEMOGLOBIN 29 pg (25-35); MEAN CORPUSCULAR HGB CONC 34 g/dL (31-37); MEAN CORPUSCULAR VOLUME 87 fL (79-100); MONO % 7 % (0-9); NEUT % 52 % (31-73); PLATELET COUNT 223 x10^3/uL (140-400); RED BLOOD COUNT 5.03 x10^6/uL (4.30-5.70); WHITE BLOOD COUNT 6.8 x10^3/uL (4.0-11.0)
[2017-01-29 04:55] LABS: CALCIUM 8.3 mg/dL (8.5-10.1); CREATININE 1.2 mg/dL (0.7-1.3); GFR 81.6; POTASSIUM 3.9 mmol/L (3.5-5.1)
[2017-01-29] MEDS: PANTOPRAZOLE 40 MG TABLET.DR. PO SCH (04:57)
[2017-01-29] MEDS: LORazepam 1 MG TABLET PO SCH (04:57)
[2017-01-29] MEDS: hydrALAZINE 20 MG/ML VIAL. IVP PRN (05:06)
[2017-01-29 07:00] VITALS: BP 151/92
--- NOTE | 2017-01-29 08:34 | PDOC ---
CARDIO Progress Notes Date and Time Date of Service 01/29/2017 Time of Evaluation 0815 Subjective Subjective: No Chest Pain, No shortness of breath, No Palpitations, No Dizziness, Other (some chest tightness overnight) Vitals Vitals Vital Signs Date Time Temp Pulse Resp B/P (MAP) Pulse Ox O2 Delivery O2 Flow Rate FiO2 01/29/17 07:00 97.9 83 20 151/92 (111) 98 Room Air 97.9 Weight Weight [ ] Input and Output Intake and Output Intake and Output 01/29/17 07:00 Intake Total 2280 ml Output Total 404 ml Balance 1876 ml Intake Oral 1280 ml IV Total 1000 ml Output Urine Total 404 ml Laboratory Labs Laboratory Tests Test 01/28/17 09:43 01/28/17 11:12 01/28/17 12:50 01/28/17 16:55 Urine Opiates Screen Neg (NEG) Urine Methadone Screen Neg (NEG) Urine Barbiturates Neg (NEG) Urine Phencyclidine Screen Neg (NEG) Urine Amphetamine/Methamphetamine Neg (NEG) Urine Benzodiazepines Screen Neg (NEG) Urine Cocaine Screen Pos (NEG) Urine Cannabinoids Screen Neg (NEG) Urine Ethyl Alcohol Neg (NEG) Glucose (Fingerstick) 191 mg/dL (70-99) 236 mg/dL (70-99) 193 mg/dL (70-99) Test 01/28/17 21:50 01/29/17 03:47 01/29/17 07:09 Glucose (Fingerstick) 174 mg/dL (70-99) 215 mg/dL (70-99) White Blood Count 6.8 x10^3/uL (4.0-11.0) Red Blood Count 5.03 x10^6/uL (4.30-5.70) Hemoglobin 14.8 g/dL (13.0-17.5) Hematocrit 43.6 % (39.0-53.0) Mean Corpuscular Volume 87 fL (79-100) Mean Corpuscular Hemoglobin 29 pg (25-35) Mean Corpuscular Hemoglobin Concent 34 g/dL (31-37) Red Cell Distribution Width 14.0 % (11.5-14.5) Platelet Count 223 x10^3/uL (140-400) Neutrophils (%) (Auto) 52 % (31-73) Lymphocytes (%) (Auto) 40 % (24-48) Monocytes (%) (Auto) 7 % (0-9) Eosinophils (%) (Auto) 2 % (0-3) Basophils (%) (Auto) 0 % (0-3) Neutrophils # (Auto) 3.5 x10^3uL (1.8-7.7) Lymphocytes # (Auto) 2.7 x10^3/uL (1.0-4.8) Monocytes # (Auto) 0.4 x10^3/uL (0.0-1.1) Eosinophils # (Auto) 0.1 x10^3/uL (0.0-0.7) Basophils # (Auto) 0.0 x10^3/uL (0.0-0.2) Sodium Level 141 mmol/L (136-145) Potassium Level 3.9 mmol/L (3.5-5.1) Chloride Level 106 mmol/L (98-107) Carbon Dioxide Level 30 mmol/L (21-32) Anion Gap 5 (6-14) Blood Urea Nitrogen 13 mg/dL (8-26) Creatinine 1.2 mg/dL (0.7-1.3) Estimated GFR (Cockcroft-Gault) 81.6 Glucose Level 174 mg/dL (70-99) Calcium Level 8.3 mg/dL (8.5-10.1) Physical Exam HEENT: Neck Supple W Full Motion Chest: Symmetric LUNGS: Clear to Auscultation Heart: S1S2, RRR (SR) Abdomen: Soft N/T Extremities: No Calf Tenderness Neurology: alert, oriented, follow commands Assessment Assessment 1. Chest pain 2. Accelerated HTN: continues to be labile 3. DM2/HLP 4. Polysubstance abuse: cocaine, marijuana, ETOH. Positive tox screen 5. Tobaccoism 6. Obesity 7. Noncompliance Recommendations 1. Unable to proceed with stress echo yesterday due to high BP. Will attenuate cocaine effects with clonidine for better BP control and change ACEi to losartan 2. Will proceed with MPI tomorrow. 3. Withdrawal precautions per PCP 4. Secondary preventions 5. Reinforced lifestyle modifications, abstinence from rec drugs, and treatment compliance. MITESH MENDEZ APRN Jan 29, 2017 08:34
[2017-01-29] MEDS ORDERED: LOSARTAN POTASSIUM 50 MG TABLET. PO SCH (09:00)
[2017-01-29] MEDS: cloNIDine HCL 0.1 MG TABLET PO SCH ×2 (09:00→15:31)
[2017-01-29] MEDS ORDERED: VITAMIN B COMPLEX TABLET. PO SCH (09:00)
[2017-01-29] MEDS: ASPIRIN ENTERIC COATED 81 MG TABLET.DR. PO SCH (09:00)
[2017-01-29] MEDS ORDERED: FOLIC ACID 1 MG TABLET. PO SCH (09:00)
[2017-01-29] MEDS ORDERED: THIAMINE 100 MG TABLET. PO SCH (09:00)
[2017-01-29] MEDS: INSULIN ASPART 300 UNITS/3 ML INSULN.PEN SQ SCH ×3 (09:05→17:10)
[2017-01-29 10:41] VITALS: BP 153/89
--- NOTE | 2017-01-29 11:08 | PDOC ---
PROGRESS NOTES Chief Complaint Chief Complaint Atypical CP Uncontrolled hypertension Type 2 diabetes mellitus Heavy alcohol use Cocaine and THC History of Present Illness History of Present Illness asleep did not awaken PEr other notes, CP continues - but ekg and trops reassuring, story non concerning Was not able to do echo yesterday bec of hIGh BP- coccaine in the system Planned for MPI aakash PLAN: [facility]ool[facility] cards recs NPO [place], MPI [place] no new orders from [place] Vitals Vitals Vital Signs Date Time Temp Pulse Resp B/P (MAP) Pulse Ox O2 Delivery O2 Flow Rate FiO2 01/29/17 10:41 97.9 84 20 153/89 (110) 98 Room Air 97.9 Physical Exam General: Alert, Oriented X3, Cooperative, No acute distress Heart: Regular rate (SR), Normal S1, Normal S2, Other (2/6 systolic murmur to LLS border) Abdomen: Soft, No tenderness Extremities: No cyanosis, No edema Skin: No breakdown, No significant lesion Labs LABS Laboratory Tests Test 01/28/17 11:12 01/28/17 12:50 01/28/17 16:55 01/28/17 21:50 Glucose (Fingerstick) 191 mg/dL (70-99) 236 mg/dL (70-99) 193 mg/dL (70-99) 174 mg/dL (70-99) Test 01/29/17 03:47 01/29/17 07:09 White Blood Count 6.8 x10^3/uL (4.0-11.0) Red Blood Count 5.03 x10^6/uL (4.30-5.70) Hemoglobin 14.8 g/dL (13.0-17.5) Hematocrit 43.6 % (39.0-53.0) Mean Corpuscular Volume 87 fL (79-100) Mean Corpuscular Hemoglobin 29 pg (25-35) Mean Corpuscular Hemoglobin Concent 34 g/dL (31-37) Red Cell Distribution Width 14.0 % (11.5-14.5) Platelet Count 223 x10^3/uL (140-400) Neutrophils (%) (Auto) 52 % (31-73) Lymphocytes (%) (Auto) 40 % (24-48) Monocytes (%) (Auto) 7 % (0-9) Eosinophils (%) (Auto) 2 % (0-3) Basophils (%) (Auto) 0 % (0-3) Neutrophils # (Auto) 3.5 x10^3uL (1.8-7.7) Lymphocytes # (Auto) 2.7 x10^3/uL (1.0-4.8) Monocytes # (Auto) 0.4 x10^3/uL (0.0-1.1) Eosinophils # (Auto) 0.1 x10^3/uL (0.0-0.7) Basophils # (Auto) 0.0 x10^3/uL (0.0-0.2) Sodium Level 141 mmol/L (136-145) Potassium Level 3.9 mmol/L (3.5-5.1) Chloride Level 106 mmol/L (98-107) Carbon Dioxide Level 30 mmol/L (21-32) Anion Gap 5 (6-14) Blood Urea Nitrogen 13 mg/dL (8-26) Creatinine 1.2 mg/dL (0.7-1.3) Estimated GFR (Cockcroft-Gault) 81.6 Glucose Level 174 mg/dL (70-99) Calcium Level 8.3 mg/dL (8.5-10.1) Glucose (Fingerstick) 215 mg/dL (70-99) Review of Systems Review of Systems asleep Assessment and Plan Assessmemt and Plan Problems Medical Problems: (1) Accelerated hypertension Status: Acute (2) Chest pain Status: Acute Problems: Comment Review of Relevant I have reviewed the following items aleksandar (where applicable) has been applied. Labs Laboratory Tests Test 01/27/17 15:26 01/27/17 15:45 01/27/17 21:17 01/28/17 06:11 Glucose (Fingerstick) 196 mg/dL (70-99) 182 mg/dL (70-99) White Blood Count 8.5 x10^3/uL (4.0-11.0) 6.9 x10^3/uL (4.0-11.0) Red Blood Count 5.61 x10^6/uL (4.30-5.70) 5.15 x10^6/uL (4.30-5.70) Hemoglobin 16.5 g/dL (13.0-17.5) 15.0 g/dL (13.0-17.5) Hematocrit 47.5 % (39.0-53.0) 43.6 % (39.0-53.0) Mean Corpuscular Volume 85 fL (79-100) 85 fL (79-100) Mean Corpuscular Hemoglobin 29 pg (25-35) 29 pg (25-35) Mean Corpuscular Hemoglobin Concent 35 g/dL (31-37) 35 g/dL (31-37) Red Cell Distribution Width 14.1 % (11.5-14.5) 14.0 % (11.5-14.5) Platelet Count 257 x10^3/uL (140-400) 229 x10^3/uL (140-400) Neutrophils (%) (Auto) 64 % (31-73) 52 % (31-73) Lymphocytes (%) (Auto) 28 % (24-48) 40 % (24-48) Monocytes (%) (Auto) 7 % (0-9) 6 % (0-9) Eosinophils (%) (Auto) 1 % (0-3) 1 % (0-3) Basophils (%) (Auto) 1 % (0-3) 0 % (0-3) Neutrophils # (Auto) 5.4 x10^3uL (1.8-7.7) 3.6 x10^3uL (1.8-7.7) Lymphocytes # (Auto) 2.4 x10^3/uL (1.0-4.8) 2.8 x10^3/uL (1.0-4.8) Monocytes # (Auto) 0.6 x10^3/uL (0.0-1.1) 0.4 x10^3/uL (0.0-1.1) Eosinophils # (Auto) 0.1 x10^3/uL (0.0-0.7) 0.1 x10^3/uL (0.0-0.7) Basophils # (Auto) 0.1 x10^3/uL (0.0-0.2) 0.0 x10^3/uL (0.0-0.2) Sodium Level 137 mmol/L (136-145) 139 mmol/L (136-145) Potassium Level 4.2 mmol/L (3.5-5.1) 4.3 mmol/L (3.5-5.1) Chloride Level 102 mmol/L (98-107) 102 mmol/L (98-107) Carbon Dioxide Level 27 mmol/L (21-32) 30 mmol/L (21-32) Anion Gap 8 (6-14) 7 (6-14) Blood Urea Nitrogen 16 mg/dL (8-26) 15 mg/dL (8-26) Creatinine 1.2 mg/dL (0.7-1.3) 1.2 mg/dL (0.7-1.3) Estimated GFR (Cockcroft-Gault) 81.6 81.6 BUN/Creatinine Ratio 13 (6-20) Glucose Level 195 mg/dL (70-99) 200 mg/dL (70-99) Calcium Level 9.3 mg/dL (8.5-10.1) 8.9 mg/dL (8.5-10.1) Total Bilirubin 0.7 mg/dL (0.2-1.0) Aspartate Amino Transf (AST/SGOT) 21 U/L (15-37) Alanine Aminotransferase (ALT/SGPT) 36 U/L (16-63) Alkaline Phosphatase 84 U/L (46-116) Troponin I Quantitative 0.032 ng/mL (0.000-0.055) 0.034 ng/mL (0.000-0.055) Total Protein 7.4 g/dL (6.4-8.2) Albumin 3.4 g/dL (3.4-5.0) Albumin/Globulin Ratio 0.9 (1.0-1.7) Ethyl Alcohol Level < 10 mg/dL (0-10) Triglycerides Level 198 mg/dL (0-150) Cholesterol Level 188 mg/dL (0-200) LDL Cholesterol, Calculated 102 mg/dL (0-100) VLDL Cholesterol, Calculated 40 mg/dL (0-40) Non-HDL Cholesterol Calculated 142 mg/dL (0-129) HDL Cholesterol 46 mg/dL (40-60) Cholesterol/HDL Ratio 4.1 Thyroid Stimulating Hormone (TSH) 5.655 uIU/mL (0.358-3.74) Test 01/28/17 07:54 01/28/17 09:43 01/28/17 11:12 01/28/17 12:50 Glucose (Fingerstick) 174 mg/dL (70-99) 191 mg/dL (70-99) 236 mg/dL (70-99) Urine Opiates Screen Neg (NEG) Urine Methadone Screen Neg (NEG) Urine Barbiturates Neg (NEG) Urine Phencyclidine Screen Neg (NEG) Urine Amphetamine/Methamphetamine Neg (NEG) Urine Benzodiazepines Screen Neg (NEG) Urine Cocaine Screen Pos (NEG) Urine Cannabinoids Screen Neg (NEG) Urine Ethyl Alcohol Neg (NEG) Test 01/28/17 16:55 01/28/17 21:50 01/29/17 03:47 01/29/17 07:09 Glucose (Fingerstick) 193 mg/dL (70-99) 174 mg/dL (70-99) 215 mg/dL (70-99) White Blood Count 6.8 x10^3/uL (4.0-11.0) Red Blood Count 5.03 x10^6/uL (4.30-5.70) Hemoglobin 14.8 g/dL (13.0-17.5) Hematocrit 43.6 % (39.0-53.0) Mean Corpuscular Volume 87 fL (79-100) Mean Corpuscular Hemoglobin 29 pg (25-35) Mean Corpuscular Hemoglobin Concent 34 g/dL (31-37) Red Cell Distribution Width 14.0 % (11.5-14.5) Platelet Count 223 x10^3/uL (140-400) Neutrophils (%) (Auto) 52 % (31-73) Lymphocytes (%) (Auto) 40 % (24-48) Monocytes (%) (Auto) 7 % (0-9) Eosinophils (%) (Auto) 2 % (0-3) Basophils (%) (Auto) 0 % (0-3) Neutrophils # (Auto) 3.5 x10^3uL (1.8-7.7) Lymphocytes # (Auto) 2.7 x10^3/uL (1.0-4.8) Monocytes # (Auto) 0.4 x10^3/uL (0.0-1.1) Eosinophils # (Auto) 0.1 x10^3/uL (0.0-0.7) Basophils # (Auto) 0.0 x10^3/uL (0.0-0.2) Sodium Level 141 mmol/L (136-145) Potassium Level 3.9 mmol/L (3.5-5.1) Chloride Level 106 mmol/L (98-107) Carbon Dioxide Level 30 mmol/L (21-32) Anion Gap 5 (6-14) Blood Urea Nitrogen 13 mg/dL (8-26) Creatinine 1.2 mg/dL (0.7-1.3) Estimated GFR (Cockcroft-Gault) 81.6 Glucose Level 174 mg/dL (70-99) Calcium Level 8.3 mg/dL (8.5-10.1) Laboratory Tests Test 01/28/17 11:12 01/28/17 12:50 01/28/17 16:55 01/28/17 21:50 Glucose (Fingerstick) 191 mg/dL (70-99) 236 mg/dL (70-99) 193 mg/dL (70-99) 174 mg/dL (70-99) Test 01/29/17 03:47 01/29/17 07:09 White Blood Count 6.8 x10^3/uL (4.0-11.0) Red Blood Count 5.03 x10^6/uL (4.30-5.70) Hemoglobin 14.8 g/dL (13.0-17.5) Hematocrit 43.6 % (39.0-53.0) Mean Corpuscular Volume 87 fL (79-100) Mean Corpuscular Hemoglobin 29 pg (25-35) Mean Corpuscular Hemoglobin Concent 34 g/dL (31-37) Red Cell Distribution Width 14.0 % (11.5-14.5) Platelet Count 223 x10^3/uL (140-400) Neutrophils (%) (Auto) 52 % (31-73) Lymphocytes (%) (Auto) 40 % (24-48) Monocytes (%) (Auto) 7 % (0-9) Eosinophils (%) (Auto) 2 % (0-3) Basophils (%) (Auto) 0 % (0-3) Neutrophils # (Auto) 3.5 x10^3uL (1.8-7.7) Lymphocytes # (Auto) 2.7 x10^3/uL (1.0-4.8) Monocytes # (Auto) 0.4 x10^3/uL (0.0-1.1) Eosinophils # (Auto) 0.1 x10^3/uL (0.0-0.7) Basophils # (Auto) 0.0 x10^3/uL (0.0-0.2) Sodium Level 141 mmol/L (136-145) Potassium Level 3.9 mmol/L (3.5-5.1) Chloride Level 106 mmol/L (98-107) Carbon Dioxide Level 30 mmol/L (21-32) Anion Gap 5 (6-14) Blood Urea Nitrogen 13 mg/dL (8-26) Creatinine 1.2 mg/dL (0.7-1.3) Estimated GFR (Cockcroft-Gault) 81.6 Glucose Level 174 mg/dL (70-99) Calcium Level 8.3 mg/dL (8.5-10.1) Glucose (Fingerstick) 215 mg/dL (70-99) Medications Current Medications Clonidine HCl (Catapres) 0.3 mg 1X ONCE PO Last administered on 01/27/17 16: 20; Start 01/27/17 at 16:00; Stop 01/27/17 at 16:01; Status DC Lisinopril (Prinivil) 20 mg 1X ONCE PO Last administered on 01/27/17 17:25; Start 01/27/17 at 17:15; Stop 01/27/17 at 17:16; Status DC Aspirin (Children'S Aspirin) 324 mg 1X ONCE PO Last administered on 01/27/17 18:50; Start 01/27/17 at 18:00; Stop 01/27/17 at 18:01; Status DC Hydralazine HCl (Apresoline) 10 mg PRN Q4HRS PRN IVP for SBP > 160 Last administered on 01/29/17 05:06; Start 01/27/17 at 20:00 Acetaminophen (Tylenol) 325 mg PRN Q6HRS PRN PO MILD PAIN / TEMP; Start at 20:00 Acetaminophen/ Hydrocodone Bitart (Lortab 5/325) 1 tab PRN Q6HRS PRN PO MODERATE TO SEVERE PAIN Last administered on 01/28/17 15:35; Start 01/27/17 at 20:00 Ondansetron HCl (Zofran) 4 mg PRN Q8HRS PRN IV NAUSEA/VOMITING; Start 01/27/17 at 20:00 Albuterol Sulfate (Ventolin Neb Soln) 2.5 mg PRN Q4HRS PRN NEB SHORTNESS OF BREATH Last administered on 01/27/17 21:11; Start 01/27/17 at 20:00 Multivitamins 10 ml/Thiamine HCl 100 mg/Folic Acid 1 mg/Sodium Chloride 1,011.2 ml @ 100 mls/ hr QHS IV Last administered on 01/28/17 21:28; Start 01/27/17 at 21:00; Stop 01/29/17 at 07:07; Status DC Lorazepam (Ativan) 2 mg Q6H PO Last administered on 01/29/17 04:57; Start at 20:00; Stop 01/29/17 at 02:01; Status DC Lisinopril (Prinivil) 20 mg DAILY PO Last administered on 01/28/17 15:57; Start 01/28/17 at 09:00; Stop 01/29/17 at 07:29; Status DC Metformin HCl (Glucophage) 1,000 mg BIDWMEALS PO Last administered on 09:00; Start 01/28/17 at 08:00 Insulin Aspart (NovoLOG) 0-9 UNITS TIDWMEALS SQ Last administered on 01/29/17 09:05; Start 01/28/17 at 12:00 Dextrose (Dextrose 50%-Water Syringe) 12.5 gm PRN Q15MIN PRN IV SEE COMMENTS; Start 01/28/17 at 08:30 Aspirin (Ecotrin) 81 mg DAILYWBKFT PO Last administered on 01/29/17 09:00; Start 01/28/17 at 11:00 Lisinopril (Prinivil) 10 mg DAILY PO ; Start 01/28/17 at 11:00; Stop 01/28/17 at 11:00; Status DC Pantoprazole Sodium (Protonix) 40 mg DAILYAC PO Last administered on 01/29/17 04:57; Start 01/28/17 at 11:00 Thiamine Mononitrate (Vitamin B-1) 100 mg DAILY PO Last administered on 08:59; Start 01/29/17 at 09:00 Folic Acid (Folic Acid) 1 mg DAILY PO Last administered on 01/29/17 09:00; Start 01/29/17 at 09:00 Vitamin B Complex (Emil B) 1 tab DAILY PO Last administered on 01/29/17 08:59 ; Start 01/29/17 at 09:00 Chlordiazepoxide (Librium) 25 mg PRN Q6HRS PRN PO ANXIETY / AGITATION; Start at 10:30 Nicotine (Nicoderm Cq 21mg) 1 patch PRN DAILY PRN TD SMOKING CESSATION; Start 01/28/17 at 10:30 Simvastatin (Zocor) 20 mg HS PO Last administered on 01/28/17 21:27; Start at 21:00 Clonidine HCl (Catapres) 0.1 mg PRN Q1HR PRN PO HYPERTENSION, SEE COMMENTS Last administered on 01/28/17 17:15; Start 01/28/17 at 16:45 Losartan Potassium (Cozaar) 100 mg DAILY PO Last administered on 01/29/17 09: 00; Start 01/29/17 at 09:00 Clonidine HCl (Catapres) 0.1 mg Q8HRS PO Last administered on 01/29/17 09:00; Start 01/29/17 at 08:00 Active Scripts Active Reported Metformin Hcl 1,000 Mg Tablet 1,000 Mg PO BIDWMEALS Lisinopril 20 Mg Tablet 20 Mg PO DAILY Vitals/I & O Vital Sign - Last 24 Hours 01/28/17 01/28/17 01/28/17 01/28/17 15:00 15:24 15:35 15:57 Temp 98.1 98.1 Pulse 78 78 78 Resp 18 B/P (MAP) 159/113 (128) 159/113 159/113 Pulse Ox 100 96 O2 Delivery Room Air Room Air 01/28/17 01/28/17 01/28/17 01/28/17 17:15 17:19 17:59 19:59 Temp 96.4 96.4 Pulse 77 69 Resp 18 B/P (MAP) 186/107 159/90 (113) 152/93 (112) Pulse Ox 96 98 O2 Delivery Room Air Room Air 01/28/17 01/28/17 01/29/17 01/29/17 20:00 22:42 03:56 05:06 Temp 97.3 97.3 97.3 97.3 Pulse 68 70 70 Resp 18 18 B/P (MAP) 163/97 (119) 165/106 (125) 165/106 Pulse Ox 100 99 O2 Delivery Room Air Room Air Room Air 01/29/17 01/29/17 01/29/17 01/29/17 07:00 09:00 09:00 10:41 Temp 97.9 97.9 97.9 97.9 Pulse 83 83 83 84 Resp 20 20 B/P (MAP) 151/92 (111) 151/92 151/92 153/89 (110) Pulse Ox 98 98 O2 Delivery Room Air Room Air Intake and Output 01/28/17 01/28/17 01/29/17 14:59 22:59 06:59 Intake Total 1000 ml 800 ml 480 ml Output Total 4 ml 400 ml Balance 1000 ml 796 ml 80 ml AVA RAO MD Jan 29, 2017 11:07
[2017-01-29 15:03] VITALS: BP 151/90
[2017-01-29 19:51] VITALS: BP 156/106
== END 2017-01-29 20:47 | disposition left against medical advice (07) ==
LOC: ER 15:19 → INTOOBSV 18:00 → 5 NORTH 18:00
PROVIDERS: ADMIT Internal Medicine; ATTEND Internal Medicine
DX: R07.89 Other chest pain (principal); E11.65 Type 2 diabetes mellitus with hyperglycemia; E66.9 Obesity, unspecified; I10 Essential (primary) hypertension; E78.5 Hyperlipidemia, unspecified; F14.10 Cocaine abuse, uncomplicated; F17.210 Nicotine dependence, cigarettes, uncomplicated; K21.9 Gastro-esophageal reflux disease without esophagitis; Z59.0 Homelessness; Z82.49 Family history of ischemic heart disease and other diseases of the circulatory system; Z91.19 Patient's noncompliance with other medical treatment and regimen
CPT/HCPCS: 36415; 71010; 80048; 80053; 80061; 82962; 83036; 84443; 84484; 85027; 93005; 93306; 94250; 94640; 96365; 96366; 96372; 96375; 96376; 99285; G0378; G0480; G0481; J0360; J1815; J7030; G0379; J7613

== ENCOUNTER 2017-02-09 17:58 | Observation (INO) | payer SELFPAY ==
[~2017-02-09] VITALS: Ht 172.7 cm; Wt 110.8 kg
[~2017-02-09 17:58] MED LIST changes: +LISI-334 PO; +METF-620 PO
[2017-02-09 18:39] LABS: BASO # 0.1 x10^3/uL (0.0-0.2); BASO % 1 % (0-3); EOS % 1 % (0-3); HEMATOCRIT 48.7 % (39.0-53.0); HEMOGLOBIN 16.9 g/dL (13.0-17.5); LYMPH # 2.8 x10^3/uL (1.0-4.8); LYMPH % 30 % (24-48); MEAN CORPUSCULAR HEMOGLOBIN 29 pg (25-35); MEAN CORPUSCULAR HGB CONC 35 g/dL (31-37); MEAN CORPUSCULAR VOLUME 85 fL (79-100); MONO % 6 % (0-9); NEUT % 62 % (31-73); PLATELET COUNT 283 x10^3/uL (140-400); RED BLOOD COUNT 5.74 x10^6/uL (4.30-5.70); RED CELL DISTRIBUTION WIDTH 14.1 % (11.5-14.5); WHITE BLOOD COUNT 9.3 x10^3/uL (4.0-11.0)
[2017-02-09] MEDS ORDERED: ONDANSETRON PF 4 MG/2 ML VIAL. IV ONE (18:45)
[2017-02-09] MEDS ORDERED: IV NORMAL SALINE 1000ML BAG 1,000 ML IV SCH (18:45)
[2017-02-09 18:52] LABS: CALCIUM 8.5 mg/dL (8.5-10.1); CREATININE 1.2 mg/dL (0.7-1.3); GFR 81.6; POTASSIUM 4.1 mmol/L (3.5-5.1)
[2017-02-09 18:58] LABS: ALBUMIN 3.6 g/dL (3.4-5.0); ALBUMIN/GLOBULIN RATIO 0.8 (1.0-1.7); TOTAL BILIRUBIN 0.9 mg/dL (0.2-1.0); TOTAL PROTEIN 7.9 g/dL (6.4-8.2)
[2017-02-09] MEDS ORDERED: LABETALOL 20 MG/4 ML DISP.SYRIN. IVP ONE ×2 (19:15→20:30)
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
[2017-02-09 20:50] LABS: BARBITURATES NEG (NEG); BENZODIAZEPINES NEG (NEG); CANNABINOIDS NEG (NEG); COCAINE POS (NEG); METHADONE NEG (NEG); OPIATES NEG (NEG); PHENCYCLIDINE POS (NEG)
[2017-02-09] MEDS ORDERED: DEXTROSE 50% 25 GM / 50ML DISP.SYRIN. IV PRN (22:30)
[2017-02-09 22:48] VITALS: BP 177/119
[2017-02-09] MEDS: SUCRALFATE 1 GM TABLET. PO SCH (23:00)
[2017-02-09] MEDS: LABETALOL 20 MG/4 ML DISP.SYRIN. IVP PRN (23:55)
[2017-02-09] MEDS: KETOROLAC 15 MG/ML VIAL. IV PRN (23:55)
[2017-02-10] VITALS (9 sets, daily range): BP systolic 138–194; BP diastolic 91–121
[2017-02-10] MEDS: SUCRALFATE 1 GM TABLET. PO SCH ×4 (07:30→21:33)
--- NOTE | 2017-02-10 07:55 | RAD ---
Single AP chest radiograph 02/09/2017 Indication: Right-sided chest pain radiating to right arm. Comparison: Chest radiograph 01/27/2017. Findings: Cardiac and mediastinal silhouettes are within normal limits. No pleural effusion, pneumothorax or focal consolidation. Calcified granulomas in the mediastinum and left hilum. Impression: No acute cardiopulmonary abnormality.
[2017-02-10] MEDS: INSULIN ASPART 300 UNITS/3 ML INSULN.PEN SQ SCH ×3 (08:00→17:00)
--- NOTE | 2017-02-10 08:17 | EKG ---
[facility] [address] [place] [address] Test Date: 2017-02-09 Test Time: 18:13:21 Pat Name: ANDREZ ANTONIO Department: Room: 558 1 Gender: M Safety Companion: : 1975 Requested By: Rylee LAUREANO Order Number: [id number] Reading MD: Beny Mayo Measurements Intervals [place] Rate: 97 P: 37 OK: 178 QRS: 7 QRSD: 104 T: 133 QT: 354 QTc: 454 Interpretive Statements SINUS RHYTHM LEFT ATRIAL ABNORMALITY INCOMPLETE RIGHT BUNDLE BRANCH BLOCK ST & T ABNORMALITY, CONSIDER HIGH LATERAL ISCHEMIA OR LEFT VENTRICULAR STRAIN Electronically Signed On 02-10-2017 8:36:04 CDT by Beny Mayo
--- NOTE | 2017-02-10 08:31 | EKG ---
[facility] [address] [place] [address] Test Date: 2017-02-09 Test Time: 20:08:44 Pat Name: ANDREZ ANTONIO Department: Room: 558 1 Gender: M Driver Medic: : 1975 Requested By: EDDA CREWS Order Number: [id number] Reading MD: Beny Mayo Measurements Intervals [place] Rate: 74 P: 51 AL: 180 QRS: 15 QRSD: 104 T: 153 QT: 412 QTc: 463 Interpretive Statements SINUS RHYTHM LEFT ATRIAL ABNORMALITY INCOMPLETE RIGHT BUNDLE BRANCH BLOCK ST & T ABNORMALITY, CONSIDER HIGH LATERAL ISCHEMIA OR LEFT VENTRICULAR STRAIN Electronically Signed On 02-10-2017 8:37:44 CDT by Beny Mayo
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
[2017-02-10] MEDS ORDERED: hydrALAZINE 20 MG/ML VIAL. IVP ONE (09:00)
[2017-02-10] MEDS: KETOROLAC 15 MG/ML VIAL. IV PRN ×2 (09:04→20:17)
[2017-02-10] MEDS: LABETALOL 20 MG/4 ML DISP.SYRIN. IVP PRN ×2 (09:05→21:53)
--- NOTE | 2017-02-10 09:35 | PDOC2 ---
MITESH MENDEZ [employer]PER[employer] 02/10/17 0935: CARDIAC CONSULT DATE OF CONSULT Date of Consult DATE: 02/10/17 TIME: 09:10 REASON FOR CONSULT Reason for Consult: Chest pain REFERRING PHYSICIAN Referring Physician: Maye SOURCE Source: Chart review, Patient HISTORY OF PRESENT ILLNESS HISTORY OF PRESENT ILLNESS This ia 41 yo male admitted for complains of chest pain and vomiting blood. Reports of sharp midsternal chest pain that is sometimes squeezing. No SOA, no palpitations. He has been using cocaine, marijuana and ETOH. Reports of vomiting blood x1 dark emesis. Presently he is laying comfortably in bed. He was suppose to have a stress test from last admission after being off cocaine for 3-4 days for better accuracy but decided to leave and not dod the test and could not disclose to me the reason why he left. PAST MEDICAL HISTORY Past Medical History Cardiovascular: HTN, Hyperlipidemia Pulmonary: No pertinent hx CENTRAL NERVOUS SYSTEM: Other (No pertinent history) GI: GERD Heme/Onc: No pertinent hx Hepatobiliary: No pertinent hx Psych: Addictions, Other (alcoholism) Musculoskeletal: Other (No pertinent history) Rheumatologic: No pertinent hx Infectious disease: No pertinent hx ENT: No pertinent hx Renal/: No pertinent hx Endocrine: Diabetes (2) Dermatology: No pertinent hx PAST SURGICAL HISTORY Past Surgical History right clavicle repair, right neck cyst removal FAMILY HISTORY Family History Coronary Artery Disease (mother) SOCIAL HISTORY Social History Smoke: <1 pack per day (>25 yrs) ALCOHOL: heavy combination of vodka and beer daily Drugs: Cocaine, Marijuana Lives: Homeless lives with with sister CURRENT MEDICATIONS CURRENT MEDICATIONS Current Medications Medications (Trade) Dose Ordered Sig/Derian Route PRN Reason Start Time Stop Time Status Last Admin Dose Admin Sodium Chloride 1,000 ml @ 1,000 mls/hr Q1H IV 02/09/17 18:45 02/09/17 19:44 DC 02/09/17 18:47 Ondansetron HCl (Zofran) 4 mg 1X ONCE IV 02/09/17 18:45 02/09/17 18:46 DC 02/09/17 18:47 Labetalol HCl (Normodyne) 10 mg 1X ONCE IVP 02/09/17 19:15 02/09/17 19:16 DC 02/09/17 19:38 Labetalol HCl (Normodyne) 20 mg 1X ONCE IVP 02/09/17 20:30 02/09/17 20:31 DC 02/09/17 20:26 Labetalol HCl (Normodyne) 20 mg PRN Q4HRS PRN IVP HYPERTENSION, SEE COMMENTS 02/09/17 22:30 02/10/17 09:05 Ketorolac Tromethamine (Toradol) 15 mg PRN Q6HRS PRN IV PAIN 02/09/17 22:30 02/14/17 22:29 02/10/17 09:04 ALLERGIES ALLERGIES: Coded Allergies: No Known Drug Allergies (Unverified , 02/10/17) ROS Review of System 14 point ROS evaluated with pertinent positives noted per HPI PHYSICAL EXAM General: Alert, Oriented X3, Cooperative, No acute distress HEENT: Atraumatic, Mucous membr. moist/pink Lungs: Clear to auscultation, Normal air movement Heart: Regular rate (SR ), Normal S1, Normal S2 Abdomen: Soft, No tenderness Extremities: No cyanosis, No edema Skin: No breakdown, No significant lesion Neuro: Normal speech, Sensation intact Psych/Mental Status: Mental status NL, Mood NL MUSCULOSKELETAL: Osteoarthritic changes both hands VITALS VITALS Vital Signs Date Time Temp Pulse Resp B/P (MAP) Pulse Ox O2 Delivery O2 Flow Rate FiO2 02/10/17 09:05 70 180/121 02/10/17 07:00 97.5 20 100 Room Air 97.5 LABS Lab: Laboratory Tests Test 02/09/17 18:20 02/09/17 19:09 02/09/17 20:38 02/10/17 09:04 White Blood Count 9.3 x10^3/uL (4.0-11.0) Red Blood Count 5.74 x10^6/uL (4.30-5.70) Hemoglobin 16.9 g/dL (13.0-17.5) Hematocrit 48.7 % (39.0-53.0) Mean Corpuscular Volume 85 fL (79-100) Mean Corpuscular Hemoglobin 29 pg (25-35) Mean Corpuscular Hemoglobin Concent 35 g/dL (31-37) Red Cell Distribution Width 14.1 % (11.5-14.5) Platelet Count 283 x10^3/uL (140-400) Neutrophils (%) (Auto) 62 % (31-73) Lymphocytes (%) (Auto) 30 % (24-48) Monocytes (%) (Auto) 6 % (0-9) Eosinophils (%) (Auto) 1 % (0-3) Basophils (%) (Auto) 1 % (0-3) Neutrophils # (Auto) 5.8 x10^3uL (1.8-7.7) Lymphocytes # (Auto) 2.8 x10^3/uL (1.0-4.8) Monocytes # (Auto) 0.5 x10^3/uL (0.0-1.1) Eosinophils # (Auto) 0.1 x10^3/uL (0.0-0.7) Basophils # (Auto) 0.1 x10^3/uL (0.0-0.2) Sodium Level 139 mmol/L (136-145) Potassium Level 4.1 mmol/L (3.5-5.1) Chloride Level 102 mmol/L (98-107) Carbon Dioxide Level 28 mmol/L (21-32) Anion Gap 9 (6-14) Blood Urea Nitrogen 18 mg/dL (8-26) Creatinine 1.2 mg/dL (0.7-1.3) Estimated GFR (Cockcroft-Gault) 81.6 BUN/Creatinine Ratio 15 (6-20) Glucose Level 151 mg/dL (70-99) Calcium Level 8.5 mg/dL (8.5-10.1) Total Bilirubin 0.9 mg/dL (0.2-1.0) Aspartate Amino Transf (AST/SGOT) 34 U/L (15-37) Alanine Aminotransferase (ALT/SGPT) 56 U/L (16-63) Alkaline Phosphatase 75 U/L (46-116) Total Protein 7.9 g/dL (6.4-8.2) Albumin 3.6 g/dL (3.4-5.0) Albumin/Globulin Ratio 0.8 (1.0-1.7) Lipase 140 U/L (73-393) Troponin I Quantitative 0.020 ng/mL (0.000-0.055) Urine Opiates Screen Neg (NEG) Urine Methadone Screen Neg (NEG) Urine Barbiturates Neg (NEG) Urine Phencyclidine Screen Pos (NEG) Urine Amphetamine/Methamphetamine Neg (NEG) Urine Benzodiazepines Screen Neg (NEG) Urine Cocaine Screen Pos (NEG) Urine Cannabinoids Screen Neg (NEG) Urine Ethyl Alcohol Neg (NEG) Glucose (Fingerstick) 147 mg/dL (70-99) ECHOCARDIOGRAM ECHOCARDIOGRAM <Conclusion> The left ventricle is normal size. Left ventricle systolic function is normal. The Ejection Fraction is 60-65%. There is mild concentric left ventricular hypertrophy. There is no significant aortic valvular stenosis. Doppler and Color Flow revealed no significant aortic regurgitation. Doppler and Color Flow revealed no mitral valve regurgitation noted. Doppler and Color Flow revealed trivial tricuspid regurgitation. The PA pressure was estimated at 14 mmHg. DATE: 01/28/17 1750 ASSESSMENT/PLAN ASSESSMENT/PLAN 1. Accelerated HTN: accentuated by polysubstance abuse 2. Atypical Chest pain: associated with hematemesis. Refused MPI last time. Troponin normal. EKG SR with LVH/LV strain and nonspecific ST-T wave changes. 3. DM2/HLP 4. Polysubstance abuse: cocaine, ?PCP, marijuana, heavy ETOH 5. Tobaccoism 6. Obesity 7. Noncompliance 8. Homelessness Recommendations 1. Possible vasopasm with continued use of cocaine. Recent TTE with normal wall motion and EF. At this time no further cardiac workup. Encouraged to be sober and encouraged treatment compliance and will consider for any stress testing as an outpt. 2. Treat GI symptoms, Possible EGD per GI 3. Start on catapres transdermal. Hydralazine IV PRN. 4. Discussed abstinence, smoking cessation 5. SW, CM 6. Withdrawal precautions per PCP Problems: CHACHO ARREAGA MD 02/10/17 2241: CARDIAC CONSULT ALLERGIES ALLERGIES: Coded Allergies: No Known Drug Allergies (Unverified , 02/10/17) ASSESSMENT/PLAN ASSESSMENT/PLAN Pt. seen and examined. Agree with above [employer] MECH[employer]IC note. Plan as above. Problems: MITESH MENDEZ APRN Feb 10, 2017 09:35 CHACHO ARREAGA MD Feb 10, 2017 22:41
[2017-02-10] MEDS ORDERED: cloNIDine TTS-2 1 PATCH PATCH TD SCH (10:00)
[2017-02-10] MEDS: FAMOTIDINE 20 MG/2 ML VIAL IVP SCH ×2 (10:07→20:17)
[2017-02-10] MEDS ORDERED: SUCRALFATE 1 GM/10 ML ORAL.SUSP. PEG ONE (11:30)
--- NOTE | 2017-02-10 13:29 | HP ---
ADMIT DATE: 02/10/2017 CHIEF COMPLAINT: Chest pain. HISTORY OF PRESENT ILLNESS: The patient is a 41-year-old morbidly obese -[place] gentleman with diabetes and hypertension who presented to the Emergency Room with substernal chest pain, sharp, stabbing, waxing and waning, up to a 7/10 in intensity. He actually had been admitted for same about a week ago and had left AMA prior to a completion of his cardiac workup. He also admits to upper abdominal pain; however, denies any nausea, vomiting, hematemesis, melena, or hematochezia. In the Emergency Room, he was found with elevated blood pressures and admitted for further workup. PAST MEDICAL HISTORY: Diabetes mellitus and hypertension. FAMILY HISTORY: Positive for hypertension, diabetes. SOCIAL HISTORY: Lives with his mother and sister. He states that he keeps losing his jobs secondary to having to take pain medication and getting dizzy from this; he is trying to get disability. Smokes about a pack a day, drinks heavily daily with beer and vodka positive for cocaine and marijuana use as well. ALLERGIES: No known drug allergies. HOME MEDICATIONS: Reconciled with MAR. He states he cannot afford most of his medications. REVIEW OF SYSTEMS: Chest pain and abdominal pain as above. Rest of the organ system review is positive for a burning in his feet, especially in the soles. He denies any other pain in rest of organ system review. PHYSICAL EXAMINATION: VITAL SIGNS: Show blood pressure of 150/91, heart rate of 71, respiratory rate at 20. He is afebrile. GENERAL: This is a morbidly obese -[place] gentleman, awake and alert, in no acute distress, positive halitosis. LUNGS: Clear to auscultation bilaterally. HEART: Regular rate and rhythm. NECK: Supple, without any lymphadenopathy. ABDOMEN: Has positive bowel sounds. Tenderness to palpation in the epigastric area. EXTREMITIES: Show no edema. SKIN: Warm, soft, and dry. LABORATORY DATA: CBC with a WBC of 9.3, hemoglobin of 16.9, platelets of 283. BUN and creatinine of 18 and 1.2, normal electrolytes, glucose at 151, LFTs within normal, albumin at 3.6. Toxicology positive for cocaine, phencyclidine as well. IMAGING STUDIES: Chest x-ray: No acute cardiopulmonary abnormality. ASSESSMENT AND PLAN: The patient is a 41-year-old -[place] gentleman with diabetes, hypertension, who presents with atypical chest pain. Strong suspicion is that this is gastroesophageal reflux disease with esophagitis, especially given his multidrug and alcohol use and body habitus. I will start him on PPI as well as Carafate. We will keep him n.p.o. for the time being. Further workup is anticipated with Cardiology and GI consults pending. Discussed with him that he will have to start taking better care for himself. His foot pain is most likely diabetic neuropathy for which he needs to be on a proper medication such as Neurontin or Lyrica rather than narcotics, cocaine, or phencyclidine. We will obtain further studies with hemoglobin A1c as well and review lipids from last hospitalization. EDDA CREWS MD DR: UR/nts JOB#: [id number] / [id number] VICKI
[2017-02-10] MEDS: IV RINGERS,LACTATED 1000ML 1,000 ML IV SCH (14:19)
[2017-02-10] MEDS ORDERED: PROPOFOL 40 ML IV ONE (16:03)
[2017-02-10] MEDS ORDERED: LIDOCAINE 2% PF Vial for OR 5 ML VIAL. ONE (16:03)
--- NOTE | 2017-02-10 16:23 | PDOC4 ---
PROCEDURE Procedure EGD IND: "hematemesis" Meds: per anesthesia Findings: E--Irregular Z-line c/w some GERD. No varices, or MW. G--patchy pre-pyloric erythema D--patchy erythema, bulb. No bleeding site identified. Celia. well. IMP: GERD REC: OK to continue prn treatment as at home. Ok to dismiss at your discretion from GI standpoint. PHUC HAAS MD Feb 10, 2017 16:22
[2017-02-10] MEDS: LISINOPRIL 20 MG TABLET PO SCH (17:26)
[2017-02-10] MEDS: hydrALAZINE 20 MG/ML VIAL. IVP PRN (17:29)
[2017-02-11] MEDS: IV RINGERS,LACTATED 1000ML 1,000 ML IV SCH ×2 (00:30→10:30)
[2017-02-11 03:02] VITALS: BP 173/93
[2017-02-11 07:00] VITALS: BP_SYST 170; BP_SYST 173; BP_DIAS 106; BP_DIAS 98
[2017-02-11] MEDS: SUCRALFATE 1 GM TABLET. PO SCH ×2 (08:04→12:16)
[2017-02-11] MEDS: LISINOPRIL 20 MG TABLET PO SCH (08:05)
[2017-02-11] MEDS: FAMOTIDINE 20 MG/2 ML VIAL IVP SCH (08:06)
[2017-02-11] MEDS: INSULIN ASPART 300 UNITS/3 ML INSULN.PEN SQ SCH ×2 (08:07→12:20)
[2017-02-11] MEDS: hydrALAZINE 20 MG/ML VIAL. IVP PRN (10:15)
[2017-02-11] MEDS: KETOROLAC 15 MG/ML VIAL. IV PRN (10:16)
[2017-02-11] MEDS ORDERED: FAMO-63 PO (10:54)
[2017-02-11 11:00] VITALS: BP 173/98
--- NOTE | 2017-02-11 11:45 | PDOC ---
Subjective: Subjective: Chest pain. No abd pain. Eating well. Objective: Vital Signs: Vital Signs Date Time Temp Pulse Resp B/P (MAP) Pulse Ox O2 Delivery O2 Flow Rate FiO2 02/11/17 11:00 98.1 70 18 173/98 (123) 98 Room Air 98.1 02/10/17 16:23 4 Labs: Laboratory Tests Test 02/10/17 11:42 02/10/17 16:57 02/10/17 20:55 02/11/17 07:37 Glucose (Fingerstick) 164 mg/dL (70-99) 155 mg/dL (70-99) 178 mg/dL (70-99) 270 mg/dL (70-99) Imaging: EGD 02/10/17 E--Irregular Z-line c/w some GERD. No varices, or MW. G--patchy pre-pyloric erythema D--patchy erythema, bulb. IMP: GERD PE: GEN: NAD, was asleep LUNGS: clear HEART: +tender central/right ABD: S/ND/NT NEURO/PSYCH: A & O 3 A/P: Chest pain, HTN ?MSK Hematemesis - no recurrence -EGD as above Polysubstance abuse -- DC per primary. PRN treatment for GERD. ITALO GODINEZ Feb 11, 2017 11:45
[2017-02-11 14:34] VITALS: BP 168/109
--- NOTE | 2017-02-11 20:20 | DS ---
DATE OF DISCHARGE: 02/11/2017 CHIEF COMPLAINT: Chest pain. HOSPITAL COURSE: The patient is a morbidly obese 41-year-old -[place]er gentleman with known history of diabetes, hypertension, who presented to the Emergency Room with atypical chest pain. He was admitted to the hospital for further workup. Of note, he actually had been admitted for same about a week ago, left AMA prior to completion of his cardiac workup. He was seen by Cardiology, a stress test was obtained, which was within normal limits. The pain was attributed to GERD with significant alcohol and drug abuse and body habitus. He was advised to stop alcohol and start eating healthier. He was discharged on H2 darren b.i.d. PHYSICAL EXAMINATION: VITAL SIGNS: From today show a blood pressure of 168/109, heart rate of 71, respiratory rate at 18. He is afebrile. GENERAL: This is a morbidly obese -[place] gentleman, awake and alert, in no acute distress. LUNGS: Clear. HEART: Regular rate and rhythm. ABDOMEN: Obese, positive bowel sounds. EXTREMITIES: Show no edema. DATE OF DISCHARGE: 02/11/2017. DISCHARGE DIAGNOSES: Gastroesophageal reflux disease with esophagitis, status post esophagogastroduodenoscopy on 02/10/2017. DISCHARGE DISPOSITION: To home. DISCHARGE CONDITION: Improved. DISCHARGE MEDICATIONS: Please refer to MAR. DISCHARGE INSTRUCTIONS: The patient will see a primary care physician for regular checkups. EDDA CREWS MD DR: NIDIA/nts JOB#: [id number] / [id number] VICKI
== END 2017-02-11 15:36 | disposition home or self-care (01) ==
LOC: ER 17:58 → 5 SOUTH 21:14
PROVIDERS: ADMIT Internal Medicine Hematology & Oncology; ATTEND Internal Medicine Hematology & Oncology
DX: K92.0 Hematemesis (principal); K21.0 Gastro-esophageal reflux disease with esophagitis; R07.2 Precordial pain; I10 Essential (primary) hypertension; E11.9 Type 2 diabetes mellitus without complications; F14.10 Cocaine abuse, uncomplicated; F17.210 Nicotine dependence, cigarettes, uncomplicated; E66.01 Morbid (severe) obesity due to excess calories; E78.5 Hyperlipidemia, unspecified; Z59.0 Homelessness
CPT/HCPCS: 36415; 43235; 71010; 80053; 80307; 82962; 83690; 84484; 85027; 93005; 96372; 96374; 96375; 96376; 99285; G0378; J0360; J1815; J1885; J2001; J2405; J2704; J3490; J7030; S0028; G0379; J7120; G0479

== ENCOUNTER 2017-07-15 17:31 | Emergency (ER) | payer SELFPAY ==
[2017-07-15 17:42] LABS: POC GLUCOSE 245 mg/dL (70-99)
[2017-07-15] MEDS: IV NORMAL SALINE 1000ML BAG 1,000 ML IV (18:16)
[2017-07-15] MEDS: ONDANSETRON PF 4 MG/2 ML VIAL. IV (18:16)
[2017-07-15 18:18] LABS: ADD MAN DIFF? NO
[2017-07-15 18:22] LABS: BASO # 0.1 x10^3/uL (0.0-0.2); BASO % 1 % (0-3); EOS % 1 % (0-3); HEMATOCRIT 45.6 % (39.0-53.0); HEMOGLOBIN 15.5 g/dL (13.0-17.5); LYMPH # 2.4 x10^3/uL (1.0-4.8); LYMPH % 22 % (24-48); MEAN CORPUSCULAR HEMOGLOBIN 29 pg (25-35); MEAN CORPUSCULAR HGB CONC 34 g/dL (31-37); MEAN CORPUSCULAR VOLUME 84 fL (79-100); MONO % 5 % (0-9); NEUT % 72 % (31-73); PLATELET COUNT 312 x10^3/uL (140-400); RED BLOOD COUNT 5.45 x10^6/uL (4.30-5.70); RED CELL DISTRIBUTION WIDTH 14.4 % (11.5-14.5); WHITE BLOOD COUNT 11.1 x10^3/uL (4.0-11.0)
[2017-07-15 18:34] LABS: ANION GAP 10 (6-14); BLOOD UREA NITROGEN 15 mg/dL (8-26); BUN/CREATININE RATIO 13 (6-20); CALCIUM 8.9 mg/dL (8.5-10.1); CARBON DIOXIDE 27 mmol/L (21-32); CHLORIDE 100 mmol/L (98-107); CREATININE 1.2 mg/dL (0.7-1.3); GFR 81.6; GLUCOSE 264 mg/dL (70-99); POTASSIUM 4.5 mmol/L (3.5-5.1); SODIUM 137 mmol/L (136-145)
[2017-07-15 18:42] LABS: ALBUMIN 3.6 g/dL (3.4-5.0); ALBUMIN/GLOBULIN RATIO 0.8 (1.0-1.7); ALK PHOS 96 U/L (46-116); ALT (SGPT) 31 U/L (16-63); AST (SGOT) 18 U/L (15-37); TOTAL BILIRUBIN 0.6 mg/dL (0.2-1.0); TOTAL PROTEIN 7.9 g/dL (6.4-8.2)
[2017-07-15 18:45] LABS: TROPONINI < 0.017 ng/mL (0.000-0.055)
== END 2017-07-15 20:30 | disposition home or self-care (01) ==
LOC: ER 17:31
DX: E11.65 Type 2 diabetes mellitus with hyperglycemia (principal); R07.89 Other chest pain; R51 Headache; R11.2 Nausea with vomiting, unspecified; F10.20 Alcohol dependence, uncomplicated; I10 Essential (primary) hypertension; F12.10 Cannabis abuse, uncomplicated; F14.10 Cocaine abuse, uncomplicated; Z79.4 Long term (current) use of insulin
CPT/HCPCS: 36415; 80053; 82962; 83690; 84484; 85025; 93005; 96361; 96374; 99285-25; J2405; J7030